=== PATIENT | female | born 1990 | race Caucasian/White ===

== ENCOUNTER → 2020-05-30 01:34 | Outpatient (CLI) | payer BC, SELFPAY ==
[2020-05-30 17:42] LABS: SARS-CoV-2 RNA PCR Negative
== END ==
PROVIDERS: PCP Internal Medicine; Visit Provider Obstetrics & Gynecology
DX: Z01.812 Encounter for preprocedural laboratory examination (principal); Z20.822 Contact with and (suspected) exposure to COVID-19
CPT/HCPCS: C9803; U0003; U0005

== ENCOUNTER 2020-05-31 00:47 | Day surgery (SDC) | payer BC, SELFPAY ==
[2020-05-29 16:02] VITALS: BMI 31.8
--- NOTE | 2020-05-30 12:33 | WPDANESEPP ---
Anes - Eval Pre Procedure Procedure: Operation Date: 05/31/20 07:30 Proposed Procedures p Suction Dilatation and Curettage - Onel Allan MD Date/Time: 05/30/20 12:33 Pre Op Diagnosis: missed AB Patient Data Age: 30 Gender: F Height: 1.6 m Weight: 81.6 kg Allergies Allergy/AdvReac Type Severity Reaction Status Date / Time acetaminophen AdvReac Mild Nausea Verified 05/29/20 16:01 hydrocodone AdvReac Mild Nausea Verified 05/29/20 16:01 Wasp Allergy Unknown Swelling Uncoded 05/29/20 16:01 SEVERE Home Medications Medication Instructions Recorded Confirmed Type lbmjtufh-qtu-Xx-FA 1 tablet PO DAILY 05/29/20 05/29/20 History [] Patient hx anesthesia problems: none Family hx anesthesia problems: none PMFSH Surgical History Surgical History H/O dilation and curettage S/P ACL repair S/P Social History Social History Smoking status: Never smoker Alcohol intake: current Substance use: never Substance use type: does not use Spiritual care concerns: No Exam Day of Procedure 05/30/20 12:33
--- NOTE | 2020-05-30 23:59 | PM.IMHP ---
H&P: HPI History of Present Illness Date/Time: 05/30/20 23:59 30 y/o with LMP 03/09/20. She has had inadequately rising hcg levels. Ultrasound exam on 05/28/20 showed IUP with embryo measuring 4.4mm, a decrease in size from 4.6mm on 05/21/20. She has had no bleeding. Blood type Bpos. History significant for DVT following knee surgery in the past. Chief Complaint: Miscarriage Review of Systems Review of Systems: All systems reviewed & are unremarkable except as noted in HPI and below PMFSH Past Medical History Medical History DVT (deep venous thrombosis) Surgical History Surgical History H/O dilation and curettage S/P ACL repair S/P Social History Social History Smoking status: Never smoker Alcohol intake: current Substance use: never Substance use type: does not use Spiritual care concerns: No Meds Home Medications and Allergies Home Medications Medication Instructions Recorded Confirmed Type oevptulx-tju-Va-FA 1 tablet PO DAILY 05/29/20 05/29/20 History [] Allergies Allergy/AdvReac Type Severity Reaction Status Date / Time acetaminophen AdvReac Mild Nausea Verified 05/29/20 16:01 hydrocodone AdvReac Mild Nausea Verified 05/29/20 16:01 Wasp Allergy Unknown Swelling Uncoded 05/29/20 16:01 SEVERE Exam Const: Orientation/consciousness: patient oriented x3 Other: Well-developed, well-nourished female in no acute distress. Neck: Thyroid: thyroid normal Lymphatic: no lymphadenopathy noted (in neck, axilla or inguinal nodes) Resp: Effort & Inspection: normal respiratory effort Auscultation: clear to auscultation bilaterally Cardio: Rate: regular rate Rhythm: regular rhythm Heart sounds: S1 normal heart sound present and S2 normal heart sound present GI: Other: ABD: Soft, nontender, nondistended. No guarding or rebound tenderness. No hepatosplenomegaly. : General: Yes no CVA tenderness Other: External genitalia: normal female hair distribution, without lesion. Urethral meatus: no lesion, non prolapsed. Bladder: no mass, nontender Vagina: well-estrogenized, without lesion or discharge. No cystocele or rectocele. Cervix: no lesion or discharge. Uterus: small, anteverted, freely mobile, nontender Adnexa: no mass or tenderness. Anus/perineum: no lesions, nontender Back/Spine/Pelvis: Back: no CVA tenderness Skin: General skin exam: normal color and no rashes or lesions noted Neuro: General: patient oriented x3 Extrem: Other: Extremities: nontender with no edema Psych: Mental Status: mental status grossly normal Affect: normal affect Assessment and Plan Assessment and plan (1) Missed : Code(s): O02.1 - Missed Status: Acute Assessment and Plan: A: Missed SAB. P: Offered expectant management vs surgical management. She prefers the latter. Specifically, I have offered a dilation with suction curettage. She understands risks of surgery to include risks of anesthesia, risks of pain, infection, bleeding, blood products, thromboembolic phenomena and damage to adjacent structures such as bowel, bladder, ureters, blood vessels and nerves. She understands all these risks and elects to proceed with surgery.
--- NOTE | 2020-05-31 06:51 | P.PNAN_ITS ---
Anes - Initial Pre Proc Eval Procedure: Operation Date: 05/31/20 07:30 Proposed Procedures p Suction Dilatation and Curettage - Onel Allan MD Date/Time: 05/31/20 06:51 Surgeon: Onel Allan MD Pre Op Diagnosis: missed AB Patient Data Age: 30 Gender: F Height: 5 ft 3 in Weight: 81.6 kg Allergies Allergy/AdvReac Type Severity Reaction Status Date / Time hydrocodone AdvReac Mild Nausea Verified 05/31/20 06:38 Wasp Allergy Unknown Swelling Uncoded 05/31/20 06:38 SEVERE Home Medications Medication Instructions Recorded Confirmed Type sgkezttw-imf-Bd-FA 1 tablet PO DAILY 05/29/20 05/31/20 History [] Patient hx anesthesia problems: none Family hx anesthesia problems: none [facility] Past Medical History Medical History (Updated 05/31/20 @ 06:51 by David Camacho MD) DVT (deep venous thrombosis) Overweight Surgical History Surgical History H/O dilation and curettage S/P ACL repair S/P Social History Social History Smoking status: Never smoker Alcohol intake: current Alcohol use details: 2/MONTH Substance use: never Substance use type: does not use Living arrangements: with family Spiritual care concerns: No Anes - Eval Final PreProcedure Day of Procedure 05/31/20 06:51 Patient weight: overweight Heart: regular rate and rhythm Lungs: clear to auscultation Airway: Mallampati scale class 1 Neurological: alert and oriented Last oral intake: >/= 8 hours ASA classification: II Emergent: no Anesthetic plan: proceed Anesthesia type and monitoring: general GIVS and standard monitoring Informed Consent: The patient's anesthetic plan and its attendant risks and benefits were discussed with the patient/family/POA. Questions were solicited and answers provided to the satisfaction of the patient/family/POA.
[2020-05-31] MEDS: ACETAMINOPHEN 500 MG TABLET 1000 MG PO (07:11)
--- NOTE | 2020-05-31 07:34 | WPDHPUPDATE1 ---
History and Physical Update Update Date/Time: 05/31/20 07:34 History and Physical has been reviewed, including an updated exam of the patient. There are NO changes in the patient's condition. Risks, benefits, and alternatives have been discussed and questions answered. Patient agrees to proceed with procedure.
[2020-05-31] MEDS: LACTATED RINGERS 1,000 ML 30 ML IV CONT (07:36)
[2020-05-31 07:37] VITALS: BP 115/75; PULSE 76; RESP 16; TEMP 36.4; O2SAT 100; BMI 32.8
--- NOTE | 2020-05-31 07:59 | PM.PROC ---
Procedure Note - Detailed Date of procedure: 05/31/20 Pre-op diagnosis: missed AB Post-op diagnosis: same Procedure performed: Dilation and suction curettage Description of procedure: The patient was taken to the operating room where she was prepared and draped in the usual sterile fashion in the dorsal lithotomy position. The bladder was drained with a red rubber catheter. A sterile speculum was placed into the vagina. The anterior lip of the cervix was grasped with a single-tooth tenaculum. Ten mL of 1% lidocaine was administered in a paracervical block. The cervix was gently dilated using Hegar dilators until an 8mm dilator could be passed. The 8mm curved tip suction curette was advanced. Suction curettage was performed and products of conception were aspirated. Sharp curettage was then performed until a good uterine cry was noted. A final pass with the suction curette was made. The tenaculum was removed. Hemostasis was excellent. Sponge, lap, needle and instrument counts were correct. The patient was taken to the recovery room in stable condition. I was present and scrubbed for the entire procedure. Surgeon: Onel Allan MD Estimated blood loss (mL): 50 Drains: No Packing: No Pathology: yes (Endometrial curettings) Complications: None Condition: stable Disposition: PACU Findings: Products of conception aspirated
[2020-05-31 08:01] VITALS: BP 112/67; PULSE 74; RESP 16; O2SAT 91
[2020-05-31 08:30] VITALS: BP 110/67; PULSE 61; RESP 20
--- NOTE | 2020-05-31 08:38 | SUR.PHASEII ---
0838 - blood type noted B positive
[2020-05-31 09:00] VITALS: BP 101/65; PULSE 59; RESP 20
[2020-05-31 09:20] VITALS: BP 108/65; PULSE 67; RESP 20
== END 2020-05-31 09:26 | disposition home or self-care (01) ==
PROVIDERS: PCP Internal Medicine; Visit Provider Obstetrics & Gynecology
PROC: (CPT 59820; principal; 2020-05-31 07:30)
DX: O02.1 Missed abortion (principal); Z86.718 Personal history of other venous thrombosis and embolism
CPT/HCPCS: 59820; 36415; 85461; 88305; A9270; J1100; J1885; J2250; J2405; J2590; J2704; J3010; J7120

== ENCOUNTER 2021-07-19 23:33 | Emergency (ER) | payer BC, SELFPAY ==
[2021-07-19 23:38] VITALS: BP 118/75; PULSE 73; RESP 18; TEMP 36.6; O2SAT 99
--- NOTE | 2021-07-20 00:38 | ED.LOWEXIN ---
HPI - Extremity Injury (Lower) General Chief Complaint: Extremity Injury, Lower Stated Complaint: possible blood clot Time Seen by Provider: 07/20/21 00:31 Source: patient Mode of arrival: ambulatory Limitations: no limitations History of Present Illness HPI Narrative: This is a 31-year-old female that presents to the emergency department for right calf pain noted since yesterday. Associated with some swelling of the leg. Reports history of DVT in this leg and that the pain felt similar which prompted her to be seen. She has been undergoing IVF, although she is not currently . Denies fever or erythema. Related Data Home Medications Medication Instructions Recorded Confirmed swdqqxjf-bvw-Eg-FA 1 mg 1 tablet PO DAILY 05/29/20 05/31/20 tablet Allergies Allergy/AdvReac Type Severity Reaction Status Date / Time hydrocodone AdvReac Mild Nausea Verified 07/19/21 23:38 Wasp Allergy Unknown Swelling Uncoded 07/19/21 23:38 SEVERE Review of Systems Review of Systems: CONSTITUTIONAL: Denies fever SKIN: Denies rash MUSCULOSKELETAL: Reports myalgia. All systems reviewed & are unremarkable except as noted in HPI and below PMFSH Past Medical History Medical History (Updated 07/20/21 @ 01:19 by Natali Broderick PA-C) DVT (deep venous thrombosis) Overweight Surgical History Surgical History H/O dilation and curettage S/P ACL repair S/P Social History Social History (Updated 07/20/21 @ 00:39 by Natali Broderick PA-C) Smoking status: Never smoker Substance use: never Substance use type: does not use Spiritual care concerns: No Exam Narrative: GENERAL: Well-appearing, well-nourished, and in no acute distress. HEAD: Normocephalic, atraumatic. EYES: EOMI. CHEST: No respiratory distress. HEART: Regular rate EXTREMITIES: Normal range of motion. No edema or erythema Normal DP pulses. Normal sensation SKIN: Warm, dry, no rash. NEURO: No focal deficits. Alert and oriented x3. PSYCH: Normal mood and affect Course Vital Signs Vital signs: Vital Signs Temperature 98 F 07/19/21 23:38 Pulse Rate 73 07/19/21 23:38 Respiratory Rate 18 07/19/21 23:38 Blood Pressure 118/75 07/19/21 23:38 Pulse Oximetry 99 07/19/21 23:38 Oxygen Delivery Room Air 07/19/21 23:38 Temperature 98 F 07/19/21 23:38 Pulse Rate 62 07/20/21 01:37 Respiratory Rate 16 07/20/21 01:37 Blood Pressure 123/73 07/20/21 01:37 Pulse Oximetry 99 07/20/21 01:37 Oxygen Delivery Room Air 07/20/21 01:37 MDM - Extremity Injury (Lower) MDM Narrative Medical decision making narrative: Patient presents to the emergency department for right calf pain noted since yesterday. She is afebrile and nontoxic-appearing. No erythema or warmth of the leg. Patient has history of DVT and reports her pain feels similar to her previous 1. Patient given a dose of Lovenox in the ED and is set up for an ultrasound of her leg in the morning. Instructed to have follow-up with her primary doctor. She was given warnings to return to the ER Lab Data Attestation: I reviewed the patient's lab results. Result diagrams: 07/20/21 00:48 07/20/21 00:48 Labs: Lab Results 07/20/21 07/20/21 07/20/21 Range/Units 00:48 00:48 00:48 WBC 6.3 (4.5-10.0) K/mm3 RBC 4.29 (4.2-5.4) M/mm3 Hgb 12.6 (12.0-15.0) g/dL Hct 38.2 (37.0-47.0) % MCV 89.0 (80-100) fl MCH 29.4 (26-34) pg MCHC 33.0 (32-36) g/dl RDW 12.5 (11.5-14.5) % Plt Count 383 H (150-375) k/mm3 MPV 9.7 (7.4-10.4) fl Immature Gran % (Auto) 0.3 (0-0.5) % Neut % (Auto) 56.0 (45.5-73.1) % Lymph % (Auto) 32.9 (18.3-44.2) % Emmet % (Auto) 8.6 H (2.6-8.5) % Eos % (Auto) 1.7 (0-4.4) % Baso % (Auto) 0.5 (0.2-1.2) % Lymph # (Auto) 2.07 (0.9-3.2) K/mm3 Emmet # (Auto) 0.5 (0.
[2021-07-20 00:53] LABS: Basophils Percent Auto 0.5 % (0.2-1.2); Eosinophils Absolute Auto 0.1 K/mm3 (0-0.3); Eosinophils Percent Auto 1.7 % (0-4.4); Hematocrit 38.2 % (37.0-47.0); Hemoglobin 12.6 g/dL (12.0-15.0); Immature Granulocyte Absolute 0.02 K/mm3 (0.00-0.031); Immature Granulocyte Percent A 0.3 % (0-0.5); Lymphocytes Absolute Auto 2.07 K/mm3 (0.9-3.2); Lymphocytes Percent Auto 32.9 % (18.3-44.2); Mean Corpuscular Hemoglobin 29.4 pg (26-34); Mean Platelet Volume 9.7 fl (7.4-10.4); Monocytes Absolute Auto 0.5 K/mm3 (0.1-0.6); Monocytes Percent Auto 8.6 % (2.6-8.5); Neutrophils Absolute Auto 3.5 K/mm3 (1.3-6.7); Platelet Count Result 383 k/mm3 (150-375); Red Blood Count 4.29 M/mm3 (4.2-5.4); Red Cell Distribution Width 12.5 % (11.5-14.5); White Blood Count 6.3 K/mm3 (4.5-10.0)
[2021-07-20 01:03] LABS: Anion Gap 5 mmol/L (8-16); Blood Urea Nitrogen 9 mg/dL (7-17); Calcium 8.9 mg/dL (8.4-10.2); Carbon Dioxide 27 mmol/L (22-30); Chloride 106 mmol/L (98-107); Estimated CRCL calculation 84 ml/min; Estimated Glomerular Filt Rate > 60; Glucose 96 mg/dL (65-110); INR 0.9; Prothrombin Time 12.2 Seconds (11.1-14.7); Sodium 138 mmol/L (137-145)
[2021-07-20 01:04] LABS: Partial Thromboplastin Time 28.3 SECONDS (22.3-36.8)
[2021-07-20 01:06] LABS: D Dimer 0.33 ug/mL (<0.48)
[2021-07-20] MEDS: ENOXAPARIN 100 MG/ML SYRINGE 85 MG SUB-Q (01:33)
[2021-07-20 01:37] VITALS: BP 123/73; PULSE 62; RESP 16; O2SAT 99
== END 2021-07-20 01:44 | disposition home or self-care (01) ==
PROVIDERS: Physician Assistant; Emergency Provider General Practice; PCP Internal Medicine
DX: M79.661 Pain in right lower leg (principal); Z86.718 Personal history of other venous thrombosis and embolism; E66.3 Overweight; Z68.30 Body mass index [BMI] 30.0-30.9, adult
CPT/HCPCS: 36415; 80048; 85025; 85380; 85610; 85730; 96372; 99283; J1650

== ENCOUNTER 2021-07-20 07:31 | Outpatient (CLI) | payer BC, SELFPAY ==
--- NOTE | ~2021-07-20 | US_ITS ---
EXAMINATION: US venous doppler LE RT DATE: 07/20/2021 07:58 INDICATION: Right lower limb swelling TECHNIQUE: Medrano scale images without and with compression and Doppler images of the right lower extre mity veins were obtained. COMPARISON: None FINDINGS: The right common femoral vein, profunda femoral vein, femoral vein, popliteal vein, peronea l trunk, posterior tibial veins, and greater saphenous vein are patent. IMPRESSION: 1. Patent right lower extremity veins. No evidence of deep venous thrombosis. Reviewed, dictated and finalized at location A.
== END 2021-07-20 07:32 | disposition home or self-care (01) ==
LOC: ANHIMG 07:35
PROVIDERS: PCP Internal Medicine; Visit Provider Internal Medicine
DX: M79.89 Other specified soft tissue disorders (principal)
CPT/HCPCS: 93971

== ENCOUNTER 2021-08-25 15:27 | Emergency (ER) | payer BC, SELFPAY ==
[2021-08-25 15:30] VITALS: BP 131/81; PULSE 93; RESP 20; TEMP 37.2; O2SAT 100
--- NOTE | 2021-08-25 15:32 | ED.FEMALEGU ---
HPI - Female Genitourinary General Chief complaint: Urogenital-Female Stated complaint: Poss Uti and ear plugged Time Seen by Provider: 08/25/21 15:32 Source: patient and RN notes reviewed History of Present Illness HPI Narrative: Patient is a 31-year-old female presents the urgent care with complaints of a possible UTI. Patient states that for the last 2 days she has had burning, frequency and a lot of low back pain last night. Patient states that she was going through her IBS treatments and stopped approximately 2 weeks ago. Patient states she did have 1 healthy and a few miscarriages. Patient also reports of feeling like her ears are clogged and some slight dizziness. Patient states she had a left ear infection a couple weeks ago and wants to make sure it is cleared up . Denies of any upper respiratory complaints, fever, nausea or vomiting. Denies of abdominal pain. No other acute complaints. No acute distress noted. Patient aware of the plan of care. Some parts of this dictation were generated by voice recognition software and may contain typographical and/or grammatical inaccuracies. Related Data Home Medications Medication Instructions Recorded Confirmed evpzbnqg-xhw-Wz-FA 1 mg 1 tablet PO DAILY 05/29/20 08/25/21 tablet Allergies Allergy/AdvReac Type Severity Reaction Status Date / Time hydrocodone AdvReac Mild Nausea Verified 08/25/21 15:45 Wasp Allergy Unknown Swelling Uncoded 08/25/21 15:45 SEVERE Review of Systems Review of Systems: CONSTITUTIONAL: Denies fever, chills, or sweats. EYES: Denies visual changes, redness, or discharge. ENT: Denies rhinorrhea, congestion, sore throat. Reports of bilateral ears clogged CARDIOVASCULAR: Denies chest pain, palpitations, or edema. RESPIRATORY: Denies cough or dyspnea. GASTROINTESTINAL: Denies abdominal pain, nausea, vomiting, or diarrhea. GENITOURINARY: Reports of dysuria, urinary frequency and urgency SKIN: Denies rash or itching. MUSCULOSKELETAL: Reports of intermittent low back pain NEUROLOGIC: Denies headache, numbness, or weakness. All other systems reviewed are negative, except as documented in HPI. [facility] Past Medical History Medical History (Updated 08/25/21 @ 16:06 by LINH Roberts) DVT (deep venous thrombosis) Overweight Surgical History Surgical History H/O dilation and curettage S/P ACL repair S/P Social History Social History (Updated 07/20/21 @ 00:39 by Natali Broderick PA-C) Smoking status: Never smoker Substance use: never Substance use type: does not use Spiritual care concerns: No Comments At the time of my signature, I reviewed and agree with the nursing past medical, surgical, social, and family history. There is no relevant family history pertinent to the patient complaint. Exam Narrative: GENERAL: This is a well-nourished, well-developed patient, in no apparent distress. HEAD: normocephalic, atraumatic. EYES: PERRL. Sclera clear/white. Vision is grossly intact. EARS: External ears normal, auditory canals clear and without drainage, TMs normal without perforation. Hearing grossly intact. NOSE: External nose normal with no obvious nasal discharge, nares without redness, no rhinorrhea. THROAT: Mucous membranes moist NECK: Neck supple CARDIOVASCULAR: Regular rate and rhythm without murmurs, gallops, or rubs. RESPIRATORY: Clear to auscultation. Breath sounds equal bilaterally. No wheezes, rales, or rhonchi. GASTROINTESTINAL: Abdomen soft, reports of suprapubic tenderness, nondistended. Bowel sounds are active. SKIN: warm, intact with no suspicious lesions or rash, good texture and turgor. NEURO: awake, alert, and oriented to person, place and time. There were no obvious focal neurologic abnormalities. EXTREMITIES: No clubbing, cyanosis, or edema. BACK: Mild right-sided flank tenderness Course Course Level of Ca
== END 2021-08-25 16:10 | disposition home or self-care (01) ==
PROVIDERS: Emergency Provider Nurse Practitioner Family; PCP Internal Medicine
DX: N39.0 Urinary tract infection, site not specified (principal); Z86.718 Personal history of other venous thrombosis and embolism
CPT/HCPCS: 81003; 81025; 87077; 87086; 87088; 87186; 99213; G0463

== ENCOUNTER 2022-01-15 11:51 | Outpatient (CLI) | payer BC, SELFPAY ==
[2022-01-15 12:49] LABS: Influenza A QL RT-PCR Negative (Negative); Influenza B QL RT-PCR Negative (Negative)
== END 2022-01-15 11:52 | disposition home or self-care (01) ==
LOC: CHSLAB 11:53
PROVIDERS: PCP Family Medicine; Visit Provider Physician Assistant Medical
DX: Z20.828 Contact with and (suspected) exposure to other viral communicable diseases (principal)
CPT/HCPCS: 87502

== ENCOUNTER 2022-02-11 18:39 | Emergency (ER) | payer BC, SELFPAY ==
--- NOTE | 2022-02-11 18:43 | ED.NAVMDI ---
HPI - Nausea/Vomiting/Diarrhea General Chief complaint: Nausea/Vomiting/Diarrhea Stated complaint: Nausea Time Seen by Provider: 02/11/22 18:44 Source: patient and RN notes reviewed History of Present Illness HPI Narrative: Patient is a 31-year-old female who presents to the Urgent Care with complaints of of persistent nausea for approximately 3 days. Patient states that started Barbara morning with diarrhea. Denies any fevers or abdominal pain. Denies any urinary symptoms. Patient states that she has been doing IVF and recently stopped the medication due to symptoms. patient states that she had a blood test drawn on Wednesday which was negative. patient has not taken anything [id number] for her symptoms. No other acute complaints. No acute distress noted. Patient aware of the plan of care. Some parts of this dictation were generated by voice recognition software and may contain typographical and/or grammatical inaccuracies. Related Data Allergies Allergy/AdvReac Type Severity Reaction Status Date / Time venom-wasp Allergy Severe Swelling Verified 02/11/22 18:55 hydrocodone AdvReac Mild Nausea Verified 02/11/22 18:55 Review of Systems Review of Systems: CONSTITUTIONAL: Denies fever, chills, or sweats. EYES: Denies visual changes, redness, or discharge. ENT: Denies rhinorrhea, congestion, sore throat, or otalgia. CARDIOVASCULAR: Denies chest pain, palpitations, or edema. RESPIRATORY: Denies cough or dyspnea. GASTROINTESTINAL: Reports persistent nausea without vomiting or abdominal pain GENITOURINARY: Denies dysuria or hematuria. SKIN: Denies rash or itching. MUSCULOSKELETAL: Denies back pain, joint pain, or myalgia. NEUROLOGIC: Denies headache, numbness, or weakness. All other systems reviewed are negative, except as documented in HPI. [facility] Past Medical History Medical History DVT (deep venous thrombosis) Overweight Surgical History Surgical History H/O dilation and curettage S/P ACL repair S/P Social History Social History Smoking status: Never smoker Substance use: never Substance use type: does not use Spiritual care concerns: No Comments At the time of my signature, I reviewed and agree with the nursing past medical, surgical, social, and family history. There is no relevant family history pertinent to the patient complaint. Exam Narrative: GENERAL: This is a well-nourished, well-developed patient, in no apparent distress. HEAD: normocephalic, atraumatic. EYES: PERRL. Sclera clear/white. Vision is grossly intact. EARS: External ears normal NOSE: External nose normal with no obvious nasal discharge, nares without redness, no rhinorrhea. THROAT: Mucous membranes moist NECK: Neck supple CARDIOVASCULAR: Regular rate and rhythm without murmurs, gallops, or rubs. RESPIRATORY: Clear to auscultation. Breath sounds equal bilaterally. No wheezes, rales, or rhonchi. GASTROINTESTINAL: Abdomen soft, mild suprapubic tenderness, nondistended. Bowel sounds are active. SKIN: warm, intact with no suspicious lesions or rash, good texture and turgor. NEURO: awake, alert, and oriented to person, place and time. There were no obvious focal neurologic abnormalities. EXTREMITIES: No clubbing, cyanosis, or edema. BACK: negative CVA tenderness Course Course Level of Care: Express Care Visit Vital Signs Vital signs: Vital Signs Temperature 98.2 F 02/11/22 18:45 Pulse Rate 84 02/11/22 18:45 Respiratory Rate 20 02/11/22 18:45 Blood Pressure 128/86 02/11/22 18:45 Pulse Oximetry 100 02/11/22 18:45 Oxygen Delivery Room Air 02/11/22 18:45 Temperature 98.2 F 02/11/22 18:45 Pulse Rate 84 02/11/22 18:45 Respiratory Rate 20 02/11/22 18:45 Blood Pressure 128/86 02/11/22 18:45 Pulse Oximetry
[2022-02-11 18:45] VITALS: BP 128/86; PULSE 84; RESP 20; TEMP 36.8; O2SAT 100
== END 2022-02-11 19:27 | disposition home or self-care (01) ==
PROVIDERS: Emergency Provider Nurse Practitioner Family; PCP Family Medicine
DX: N39.0 Urinary tract infection, site not specified (principal)
CPT/HCPCS: 81003; 87086; 99213; G0463

== ENCOUNTER 2022-06-08 14:58 | Emergency (ER) | payer BC, SELFPAY ==
[2022-06-08 15:05] VITALS: BP 123/69; PULSE 78; RESP 16; TEMP 36.6; O2SAT 100
--- NOTE | 2022-06-08 15:17 | ED.GENADULT ---
HPI - General Adult General Chief complaint: Urogenital-Female Stated complaint: Urinary Problem Source: patient and RN notes reviewed History of Present Illness HPI narrative: 32-year-old male presents to urgent care with complaints of dysuria since last night. Patient states she is pretty sure she had a UTI because it whitaker with urination. Patient denies any abnormal abdominal pain, back pain, fevers, chills, or vomiting. Patient is approximately 7 weeks . 4 para 1. Related Data Home Medications Medication Instructions Recorded Confirmed norgestimate 0.25 mg-ethinyl 1 tablet PO DAILY 02/23/22 03/30/22 estradiol 35 mcg tablet (Debo) choriogonadotropin kleber,humrec 250 mcg subcut 06/08/22 mcg/0.5 mL subcutaneous syringe (Ovidrel) ganirelix 250 mcg/0.5 mL mcg subcut 06/08/22 subcutaneous syringe levothyroxine 25 mcg tablet mcg 06/08/22 progesterone 50 mg/mL mg IM 06/08/22 intramuscular oil Allergies Allergy/AdvReac Type Severity Reaction Status Date / Time venom-wasp Allergy Severe Swelling Verified 03/30/22 10:33 hydrocodone AdvReac Mild Nausea Verified 03/30/22 10:33 Review of Systems Review of Systems: Pertinent positives and pertinent negatives per HPI. [facility] Past Medical History Medical History DVT (deep venous thrombosis) Overweight Surgical History Surgical History H/O dilation and curettage S/P ACL repair S/P Social History Social History Smoking status: Never smoker Substance use: never Substance use type: does not use Living arrangements: with family Spiritual care concerns: No Comments At the time of my signature, I reviewed and agree with the nursing past medical, surgical, social, and family history. There is no relevant family history pertinent to the patient complaint. Exam Narrative: GENERAL: This is a well-nourished, well-developed patient, in no apparent distress. HEAD: normocephalic, atraumatic. EYES: Sclera clear/white. Vision is grossly intact. EARS: External ears normal, auditory canals clear and without drainage. Hearing grossly intact. NOSE: External nose normal with no obvious nasal discharge, nares without redness, no rhinorrhea. THROAT: Mucous membranes moist, posterior pharynx clear. NECK: Neck supple, non-tender without lymphadenopathy, masses or thyromegaly. CARDIOVASCULAR: Regular rate RESPIRATORY: No respiratory distress SKIN: warm, intact with no suspicious lesions or rash, good texture and turgor. NEURO: awake, alert, and oriented to person, place and time. There were no obvious focal neurologic abnormalities. Course Course Level of Care: Express Care Visit Vital Signs Vital signs: Vital Signs Temperature 98 F 06/08/22 15:05 Pulse Rate 78 06/08/22 15:05 Respiratory Rate 16 06/08/22 15:05 Blood Pressure 123/69 06/08/22 15:05 Pulse Oximetry 100 06/08/22 15:05 Oxygen Delivery Room Air 06/08/22 15:05 Temperature 98 F 06/08/22 15:05 Pulse Rate 78 06/08/22 15:05 Respiratory Rate 16 06/08/22 15:05 Blood Pressure 123/69 06/08/22 15:05 Pulse Oximetry 100 06/08/22 15:05 Oxygen Delivery Room Air 06/08/22 15:05 Reviewed Medical Decision Making Vital Signs Vital Signs: Vital Signs Temperature 98 F 06/08/22 15:05 Pulse Rate 78 06/08/22 15:05 Respiratory Rate 16 06/08/22 15:05 Blood Pressure 123/69 06/08/22 15:05 Pulse Oximetry 100 06/08/22 15:05 Oxygen Delivery Room Air 06/08/22 15:05 Temperature 98 F 06/08/22 15:05 Pulse Rate 78 06/08/22 15:05 Respiratory Rate 16 06/08/22 15:05 Blood Pressure 123/69 06/08/22 15:05 Pulse Oximetry 100 06/08/22 15:05 Oxygen Delivery Room Air 06/08/22 15:05 Lab Data Labs: Urine Glucose Negative
== END 2022-06-08 15:35 | disposition home or self-care (01) ==
PROVIDERS: Emergency Provider Nurse Practitioner Family; PCP Nurse Practitioner Family
DX: N39.0 Urinary tract infection, site not specified (principal); Z86.718 Personal history of other venous thrombosis and embolism
CPT/HCPCS: 81003; 87077; 87086; 87186; 99213; G0463

== ENCOUNTER 2023-09-07 08:40 | Outpatient (CLI) | payer BC, SELFPAY ==
--- NOTE | ~2023-09-07 | US_ITS ---
BILATERAL LOWER EXTREMITY VENOUS ULTRASOUND Ordering provider: Onel Allan MD History: . LEG PAIN . Comparison: None. FINDINGS: RIGHT LOWER EXTREMITY VEINS: --COMMON FEMORAL: Patent and free of thrombus. Normal compressibility, phasic flow and augmentation. --PROXIMAL SUPERFICIAL FEMORAL: Patent and free of thrombus. Normal compressibility, phasic flow and augmentation. --DISTAL SUPERFICIAL FEMORAL: Patent and free of thrombus. Normal compressibility, phasic flow and au gmentation. --POPLITEAL: Patent and free of thrombus. Normal compressibility, phasic flow and augmentation. --POSTERIOR TIBIAL: Patent and free of thrombus. Normal compressibility, phasic flow and augmentation . LEFT LOWER EXTREMITY VEINS: --COMMON FEMORAL: Patent and free of thrombus. Normal compressibility, phasic flow and augmentation. --PROXIMAL SUPERFICIAL FEMORAL: Patent and free of thrombus. Normal compressibility, phasic flow and augmentation. --DISTAL SUPERFICIAL FEMORAL: Patent and free of thrombus. Normal compressibility, phasic flow and au gmentation. --POPLITEAL: Patent and free of thrombus. Normal compressibility, phasic flow and augmentation. --POSTERIOR TIBIAL: Patent and free of thrombus. Normal compressibility, phasic flow and augmentation . IMPRESSION: Negative bilateral lower extremity venous US. No deep vein thrombosis. Reviewed, dictated and finalized at location A.
== END 2023-09-07 08:41 | disposition home or self-care (01) ==
LOC: ANHIMG 08:48
PROVIDERS: PCP Nurse Practitioner Family; Visit Provider Obstetrics & Gynecology
DX: M79.661 Pain in right lower leg (principal); M79.662 Pain in left lower leg
CPT/HCPCS: 93970

== ENCOUNTER 2023-11-02 10:16 | Emergency (ER) | payer BC, SELFPAY ==
[2023-11-02 10:24] VITALS: BP 119/54; PULSE 82; RESP 20; TEMP 36.7; O2SAT 100
--- NOTE | 2023-11-02 10:46 | ED.URI ---
HPI - URI/Sore Throat General Chief Complaint: Upper Respiratory Infection Stated Complaint: Sinus infection Time Seen by Provider: 11/02/23 10:47 Source: patient, RN notes reviewed and old records reviewed Mode of arrival: ambulatory Limitations: no limitations History of Present Illness HPI Narrative: 33 year old female who is 21 weeks presents to express care with complaints of sinus pressure between her eyes and headache since Mid September. 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 Patient reports that yesterday she had fever up to 99.5F and had some chills. MD elicited complaint: fever, rhinorrhea, sinus pain and other Onset (ago): month(s) (1) Pain scale (0-10): 2 Description of mucous: clear Able to tolerate fluids by mouth: Yes Treatments prior to arrival: acetaminophen and other (flonase) Related Data Allergies Allergy/AdvReac Type Severity Reaction Status Date / Time venom-wasp Allergy Severe Swelling Verified 11/02/23 10:36 hydrocodone AdvReac Mild Nausea Verified 11/02/23 10:36 Review of Systems Review of Systems: CONSTITUTIONAL: Denies malaise, chills, sweats, states yesterday low grade fever 99.5F EYES: Denies visual changes, redness, or discharge. ENT: Reports rhinorrhea, congestion, sinus pain between eyes, no otalgia and no sore throat. CARDIOVASCULAR: Denies chest pain, palpitations, or edema. RESPIRATORY: Reports no cough.? Denies dyspnea. GASTROINTESTINAL: Denies abdominal pain, nausea, vomiting, diarrhea SKIN: Denies rash or itching. MUSCULOSKELETAL: Denies myalgia. NEUROLOGIC: Reports headache. All systems reviewed & are unremarkable except as noted in HPI and below PMFSH Past Medical History Medical History DVT (deep venous thrombosis) Overweight Surgical History Surgical History H/O dilation and curettage S/P ACL repair S/P Social History Social History Smoking status: Never smoker Substance use: never Substance use type: does not use Living arrangements: with family Spiritual care concerns: No Comments At time of signature, agree with nursing past medical, surgical, social and family history. There is no relevant family history pertinent to the presenting complaint Exam Narrative: GENERAL: Well-appearing, well-nourished, and in no acute distress. HEAD: Normocephalic EYES: PERRLA, conjunctivae clear ENT: Nares clear, turbinates edematous and erythematous, clear discharge. Mucous membranes moist. TM pearly pandya with dull light reflex bilaterally; no tragal tenderness. Oropharynx erythematous without lesions. Tonsils not enlarged and without exudate, no drooling, no hoarseness, no trismus, uvula midline. NECK: Supple. No lymphadenopathy CHEST: Clear to auscultation, breath sounds equal. No wheezing, rhonchi, rales, or stridor. No respiratory distress, speaks in full sentences.SAO2 100% on room air. HEART: Regular rate and rhythm. No murmur heard. SKIN: Warm, dry, no rash. NEURO: Alert and oriented x3. PSYCH: Normal mood and affect Course Course Emergency Course: Patient is aware of diagnosis, understands and agrees to treatment plan.? Anticipatory guidance given.? Patient agrees to follow-up as directed and is aware of reasons to seek care at the emergency department. Portions of this record may have been created with voice recognition software Level of Care: Express Care Visit Vital Signs Vital signs: Vital Signs Temperature 36.7 C 11/02/23 10:24 Pulse Rate 82 11/02/23 10:24 Respiratory Rate 20 11/02/23 10:24 Blood Pressure 119/54 L 11/02/23 10:24 Pulse Oximetry 100 11/02/23 10:24 Oxygen Delivery Room Air 11/02/23 10:24 Temperature 36.7 C 0
== END 2023-11-02 11:15 | disposition home or self-care (01) ==
PROVIDERS: Emergency Provider Registered Nurse
DX: J01.40 Acute pansinusitis, unspecified (principal); Z86.718 Personal history of other venous thrombosis and embolism
CPT/HCPCS: 99213; G0463

== ENCOUNTER 2024-01-20 07:02 | Observation (INO) | payer BC, SELFPAY ==
[2024-01-20] VITALS (7 sets, daily range): BP systolic 112–137; BP diastolic 57–72; PULSE 70–88; RESP 20; TEMP 36.6; BMI 39.1
--- NOTE | 2024-01-20 08:02 | OBADM ---
This patient, Linda Ferguson, admitted to OB room 115 for observation. Patient/family oriented to hospital policies and general routines including ID bracelet, bed and alarms, visiting hours, pain management, procedures, bathroom and other care routines, personal items, smoking policy, room service/diet, and visiting hours. Patient/Family are encouraged to report perceived risks to care and to ask questions if they do not understand what they are told or what they should do.
[2024-01-20 08:11] LABS: Add Urine Microscopic? YES; Appearance Urine Cloudy (Clear); Bacteria Urine 4+ /hpf; Bilirubin Urine Negative (Negative); Blood Urine Negative (Negative); Color Urine Dark Yellow (Yellow); Glucose Urine UA Negative (Negative); Ketones Urine 3+ mg/dL (Negative); Leukocyte Esterase Ur 1+ LEU/UL (Negative); Need Manual Microscopic Reviewed; Nitrate Urine Negative (Negative); Non Pathogenic Casts 0-2; Protein Urine 1+ mg/dL (Negative); Specific Grav Ur 1.028 (1.001-1.035); Squamous Epithelial Cell Urine Moderate /hpf (Few); WBC Urine 21-50 /hpf (0-3); pH Urine 7.5 (5.0-9.0)
[2024-01-20] MEDS: DEXTROSE 5%/0.45% SOD CHL 1,000 ML 999 ML IV CONT (09:28)
[2024-01-20] MEDS: fentaNYL CITRATE INJ (*CRX) 100 MCG/2 ML VIAL 50 MCG IV PUSH (09:29)
[2024-01-20 09:46] LABS: Basophils Percent Auto 0.2 % (0.2-1.2); Eosinophils Percent Auto 0.3 % (0-4.4); Hematocrit 34.3 % (37.0-47.0); Hemoglobin 11.3 g/dL (12.0-15.0); Immature Granulocyte Absolute 0.03 K/mm3 (0.00-0.031); Immature Granulocyte Percent A 0.3 % (0-0.5); Lymphocytes Percent Auto 9.9 % (18.3-44.2); Mean Corpuscular HGB Conc 32.9 g/dl (32-36); Mean Corpuscular Volume 88.2 fl (80-100); Mean Platelet Volume 9.7 fl (7.4-10.4); Monocytes Absolute Auto 0.4 K/mm3 (0.1-0.6); Monocytes Percent Auto 3.8 % (2.6-8.5); Neutrophils Absolute Auto 7.8 K/mm3 (1.3-6.7); Neutrophils Percent Auto 85.5 % (45.5-73.1); Platelet Count Result 340 k/mm3 (150-375); Red Blood Count 3.89 M/mm3 (4.2-5.4); Red Cell Distribution Width 12.9 % (11.5-14.5); White Blood Count 9.1 K/mm3 (4.5-10.0)
[2024-01-20 09:56] LABS: Alanine Aminotransferase 12 U/L (6-35); Albumin Level 3.4 g/dL (3.5-5.1); Alkaline Phosphatase 78 U/L (38-126); Anion Gap 5 mmol/L (4-12); Aspartate Amino Transferase 18 U/L (14-36); Bilirubin,Total 0.4 mg/dL (0.2-1.3); Blood Urea Nitrogen 4 mg/dL (7-17); Calcium 8.9 mg/dL (8.4-10.2); Carbon Dioxide 23 mmol/L (22-30); Chloride 106 mmol/L (98-107); Estimated CRCL calculation 127 ml/min; Estimated Glomerular Filt Rate > 60; Glucose 88 mg/dL (65-110); Potassium 4.2 mmol/L (3.4-5.0); Sodium 134 mmol/L (137-145)
--- NOTE | 2024-01-20 12:30 | PC.NURSE ---
No stone in any of the urine collected since pt admission.
--- NOTE | 2024-01-20 12:59 | PM.IMHP ---
H&P: HPI History of Present Illness Date/Time: 01/20/24 12:59 Chief Complaint: Pain Narrative: 33 y/o at 32 6/7 weeks with right flank pain of acute onset. No dysuria. No fever. Review of Systems Review of Systems: All systems reviewed & are unremarkable except as noted in HPI and below PMFSH Past Medical History Medical History DVT (deep venous thrombosis) Overweight Surgical History Surgical History H/O dilation and curettage S/P ACL repair S/P Social History Social History Smoking status: Never smoker Substance use: never Substance use type: does not use Living arrangements: with family Spiritual care concerns: No Meds Home Medications and Allergies Home Medications Medication Instructions Recorded Confirmed Type levothyroxine 25 mcg tablet 25 mcg PO DAILY #90 tabs 03/19/23 11/02/23 Rx amoxicillin 875 mg tablet 875 mg PO Q12H #20 tabs 11/02/23 Rx acetaminophen 300 mg-codeine 30 mg 1 tablet PO Q6H PRN pain #20 tabs 01/20/24 Rx tablet Allergies Allergy/AdvReac Type Severity Reaction Status Date / Time venom-wasp Allergy Severe Swelling Verified 11/02/23 10:36 hydrocodone AdvReac Mild Nausea Verified 11/02/23 10:36 Vital Signs Vital Signs - 24 hr 01/20/24 07:46 01/20/24 08:01 01/20/24 08:49 Pulse Rate 81 88 70 Blood Pressure 128/57 L 119/68 137/72 Oxygen Delivery 01/20/24 09:01 01/20/24 09:31 01/20/24 09:38 Pulse Rate 79 77 78 Blood Pressure 126/72 116/67 112/71 Oxygen Delivery 01/20/24 08:00 Pulse Rate Blood Pressure Oxygen Delivery Room Air Exam Const: Orientation/consciousness: patient oriented x3 Other: Well-developed, well-nourished female in no acute distress. Neck: Thyroid: thyroid normal Lymphatic: no lymphadenopathy noted (in neck, axilla or inguinal nodes) Resp: Effort & Inspection: normal respiratory effort Auscultation: clear to auscultation bilaterally Cardio: Rate: regular rate Rhythm: regular rhythm Heart sounds: S1 normal heart sound present and S2 normal heart sound present GI: Other: ABD: Soft, nontender, nondistended, gravid NST reactive. TOCO: rare contractions. No guarding or rebound tenderness. No hepatosplenomegaly. : General: Yes CVA tenderness on the right Skin: General skin exam: normal color and no rashes or lesions noted Neuro: General: patient oriented x3 Extrem: Other: Extremities: nontender with no edema Psych: Mental Status: mental status grossly normal Affect: normal affect H&P: Results Labs Labs: Short CBC 01/20/24 Range/Units 09:36 WBC 9.1 (4.5-10.0) K/mm3 Hgb 11.3 L (12.0-15.0) g/dL Hct 34.3 L (37.0-47.0) % Plt Count 340 (150-375) k/mm3 BMP 01/20/24 09:36 Sodium 134 L Potassium 4.2 Chloride 106 Carbon Dioxide 23 BUN 4 L D Creatinine 0.60 L Glucose 88 Calcium 8.9 Liver Function 01/20/24 Range/Units 09:36 Total Bilirubin 0.4 (0.2-1.3) mg/dL AST 18 (14-36) U/L ALT 12 (6-35) U/L Alkaline Phosphatase 78 (38-126) U/L Albumin 3.4 L (3.5-5.1) g/dL Urine 01/20/24 Range/Units 07:33 Urine Color Dark yellow (Yellow) Urine Appearance Cloudy H (Clear) Urine pH 7.5 (5.0-9.0) Ur Specific [place] 1.028 (1.001-1.035) Urine Protein 1+ H (Negative) mg/dL Urine Glucose (UA) Negative (Negative) mg/dL Assessment and Plan Assessment and plan (1) Right flank pain: Code(s): R10.9 - Unspecified abdominal pain Status: Acute Assessment and Plan: A: IUP at 32 6/7 weeks with flank pain. Clinically suspicious for urinary tract stone. Feels much better after IV hydration. Received a dose of Rocephin. Urine culture pending. P: Home to PO hydrate. Tylenol#3 1 po q 6 hours prn pain. F/u as scheduled. (2) : Code(s): Z34.90 - Encounter for supervision of normal , unspecified, unspecified trimester Status: Acute
== END 2024-01-20 13:29 | disposition home or self-care (01) ==
PROVIDERS: Admitting Provider Obstetrics & Gynecology; Visit Provider Obstetrics & Gynecology
DX: O26.893 Other specified pregnancy related conditions, third trimester (principal); R10.9 Unspecified abdominal pain; Z3A.32 32 weeks gestation of pregnancy
CPT/HCPCS: 36415; 80053; 81001; 85025; 87086; 96361; 96365; 96375; G0378; G0379; J0696; J3010

== ENCOUNTER 2024-03-06 14:04 | Outpatient (CLI) | payer BC, SELFPAY ==
[2024-03-06 14:55] LABS: Hematocrit 35.3 % (37.0-47.0); Hemoglobin 11.4 g/dL (12.0-15.0); Mean Corpuscular HGB Conc 32.3 g/dl (32-36); Mean Corpuscular Hemoglobin 28.7 pg (26-34); Mean Corpuscular Volume 88.9 fl (80-100); Mean Platelet Volume 10.1 fl (7.4-10.4); Platelet Count Result 301 k/mm3 (150-375); Red Blood Count 3.97 M/mm3 (4.2-5.4)
[2024-03-06 22:30] LABS: Rapid Plasma Reagin Non-Reactive (NonReactive)
--- OUTSIDE RECORDS SUMMARY | 2024-03-09 13:55 | XMS_ITS | Clinical Summary ---
Author Organization [facility] [address] [facility] Address [address] d[place] [facility] [place] [address] Care Team Providers Care Storekeeper Helper Name Role Phone No, Physician Primary Care Provider [phone] Allergies Active Allergy Reactions Criticality Noted Date Comments Other Hives Medium 04/03/2019 Wasp sting Medications norethindrone (MICRONOR) 0.35 mg tablet Take 1 tablet by mouth daily 02/10/2019 Active PNV 39-iron ill-amssr-sab-dh a 30 mg iron-1.2 mg-55 mg-265 mg capsule Take by mouth daily Active Active Problems Problem Noted Date Diagnosed Date HCV antibody positive 06/10/2023 Assessment & Plan (06/10/2023 1:18 PM CDT): - HCV Ab positive with negative RNA on 2+ blood draws. No risk factors for HCV. - Discussed with patient that this pattern is consistent with either a false positive HCV test or a previous HCV infection that has now cleared. Regardless, she has a negative RNA and cannot transmit infection to fetus. Will recheck HCV Ab and RNA today and if positive will consider it likely cleared infection but if negative this is likely a false positive. History of DVT (deep vein thrombosis) 04/03/2019 Overview (04/03/2019): Following knee surgery Surgical History Surgery Date Site/Laterality Comments ARTHROSCOPIC REPAIR ACL 02/15/2009 - 02/14/2010 Left ARTHROSCOPIC REPAIR ACL 02/15/2013 - 02/14/2014 Right SECTION 10/16/2018 - 11/14/2018 DILATION AND CURETTAGE OF UTERUS 09/15/2017 - 10/15/2017 Social History Tobacco Use Types Packs/Day Years Used Date Smoking Tobacco: Never Smokeless Tobacco: Never Alcohol Use Standard Drinks/Week Comments Yes 0 (1 standard drink = 0.6 oz pur e alcohol) PHQ-2 Answer Date Recorded PHQ-2 Total Score (If total score is 3 or more points, staff should administer the PHQ-9) 1 06/07/2023 Personal Safety Answer Date Recorded Getting School Help Needed Not on file 05/01 Comments No Sex and Gender Information Value Date Recorded Sex Assigned at Not on file Legal Sex Female 8:41 AM TEST DESK TROUBLE LOCATOR Gender Identity Female 06/02/2023 11:56 AM CDT Sexual Orientation Straight 06/02/2023 11 :56 AM CDT Obstetrics History Last Filed Vital Signs Vital Sign Reading Time Taken Comments Blood Pressure 120/88 06/09/2023 9:02 AM CDT Pulse 59 06/09/2023 9:02 AM CDT Temperature 36.6 ??C (97.9 ??F) 06/09/2023 9:02 AM CD T Respiratory Rate 16 04/03/2019 9:00 AM TEST DESK TROUBLE LOCATOR Oxygen Saturation 98% 06/09/2023 9:02 AM CDT Inhaled Oxygen Concentration - - Weight 93.2 kg (205 lb 8 oz) 06/09/2023 9:02 AM CDT Height 160 cm (5' 2.99 ) 06/09/2023 9:02 AM CDT Body Mass Index 36.41 06/09/2023 9:02 AM CDT Plan of Treatment Health Maintenance Due Date Last Done Comments Cervical Cancer Screening 1989 Varicella Vaccines (1 of 2 - 13+ 2-dose series) 2002 Hepatitis B Screening 2007 Regular Well Visit/Exam 18-64 2007 Influenza Vaccine (#1) 2023 10/24/2018 Depression Screening 06/08/2024 06/09/2023 DTaP/Tdap/Td Vaccine (3 - Td or Tdap) 09/08/2028 09/08/2018, 05/29/2014 Hepatitis C Screening Completed 06/09/2023 , 06/09/2023, 06/01/2023 HPV Vaccines Aged Out No longer eligi ble based on patient's age to complete this topic Pneumococcal vaccine <65 Aged Out No longer eligible based on patient's age to complete this topic Procedures Procedure Name Priority Date/Time Associated Diagnosis Comments HEPATITIS C RNA, QUANTITATIVE, PCR Routine 06/09/2023 9:20 AM CDT HCV antibody positive from Last 3 Months or Most Recently Relevant to Health Maintenance Results * Hepatitis C (HCV) RNA PCR, quantitative Blood (06/09/2023 9:20 AM CDT) [facility] HCV RNA result Not Detected [facility] Comment: The quantifiable range of this assay is 15 IU/mL to 100,000,000 IU/mL (1.18 log IU/mL to 8.00 log IU/mL). Testing was performed by the TANISHA 6800 HCV Test ([employer] Testing performed at [facility] Current Interpretive Data was last revised on 2020 Blood 06/09/2023 9:20 AM CDT 06/09/2023 1:47 PM CDT Yolie Jacobson NP LAB MICROBIOLOGY - GENERA L ORDERABLES Final Result [facility] [address] [facility] Department [place] [address] [facility] from Last 3 Months or Most Recently Relevant to Health Maintenance Insurance [employer] [place] Care Teams Storekeeper Helper Relationship Specialty Start Date End Date No, Physician PCP - General 04/03/19
--- OUTSIDE RECORDS SUMMARY | 2024-03-09 13:55 | XMS_ITS | Patient Health Summary ---
Author Organization [facility] Address [address] [place] [address] Care Team Providers Care Ops Analyst Name Role Phone Jean Ng MD Primary Care Provider [phone] Note from [facility],non-owned Affiliates and Associated Physician Practices is amultiple site organization consisting of ambulatory clinics and hospital sitesin [place], [place], [place] and [place]. This disclosure is being madepursuant to the Care Everywhere program and may not contain all information available regarding this patient. Last updated 17.[facility] Allergies No known active allergies Medications * Be aware that medications may not be up to date on this document. Alwaysverify current medications with the patient. * Nhwmvczs-Zwt-Jf-FA ( VITAMIN WITH IRON) tablet Take 1 tablet by mouth once daily Reasons: Active Problems Problem Noted Date Diagnosed Date Supervision of high-risk of quique vaughn 04/19/2018 Encounter for scre ening for malformation using ultrasound 04/19/2018 History of DVT (deep vein thrombosis) Social History Tobacco Use Types Packs/Day Years Used Date Smoking Tobacco: Never Smokeless Tobacco: Never Alcohol Use Standard Drinks/Week Comments No 0 (1 standard drink = 0.6 oz pur e alcohol) Sex and Gender Information Value Date Recorded Sex Assigned at Female 08/05/2021 11:28 AM CDT Gender Identity Female 08/05/2021 11:28 AM CDT Sexual Orientation Straight 08/05/2021 11 :28 AM CDT Last Filed Vital Signs Vital Sign Reading Time Taken Comments Blood Pressure 126/74 04/20/2018 11:09 AM CONVENTIONAL MORTGAGE UNDERWRITER Pulse 71 04/20/2018 11:09 AM CONVENTIONAL MORTGAGE UNDERWRITER Temperature - - Respiratory Rate - - Oxygen Saturation - - Inhaled Oxygen Concentration - - Weight 84.8 kg (187 lb) 04/20/2018 11:09 AM CONVENTIONAL MORTGAGE UNDERWRITER Height 160 cm (5' 3 ) 04/20/2018 11:09 AM CONVENTIONAL MORTGAGE UNDERWRITER Body Mass Index 33.13 04/20/2018 11:09 AM CONVENTIONAL MORTGAGE UNDERWRITER Procedures * SONOGRAM - COMPLETE(Performed 04/20/2018) Performed for Thrombophilia affecting , antepartum (HCC), Encounter for screening for malformation using ultrasound (HCC), Supervision of high-risk of young multigravida (HCC), History of DVT (deep vein thrombosis) Results * SONOGRAM - COMPLETE (04/20/2018 9:24 AM CONVENTIONAL MORTGAGE UNDERWRITER) Anatomical Region Laterality Modality Other 04/20/2018 9:24 AM CONVENTIONAL MORTGAGE UNDERWRITER Narrative 04/20/2018 12:41 PM CONVENTIONAL MORTGAGE UNDERWRITER ? [facility] ?PHONE: ??FAX: Pat. Name: ?DIANNA FERGUSON. No: ?[id number] Study Date: ?? 04/20/2018 ??9:24am , Age: ? 1990, 28 Pregnancies: ?? 2, Para 0 Height: ? 62 in Weight: ? 184 lb LMP: ?Unknown GA by US: ? 14w1d ?? ARMIN: 10/18/2018 GA Selected: ??14w0d (From Known E) ARMIN: ?10/19/2018 Referring MD: Onel Allan MD Night Manager: ??Ebonie Benedict RDMS CPT4: ? 48653 BMI: ?33.65 Hist/Ind: ? H/O DVT after knee surgery ?No history of Thrombophilia MEASUREMENTS & AGE ? GROWTH EVALUATION Measurement ??GA ? Range ? Srce %for GA Ratios ----- ---- ------- BPD ??2.7 cm 14w6d (96m3j-70d2u) Hadl BPD 76% FL/BPD 0.49 HC ?? 9.8 cm 14w4d (10c5p-83t9d) Hadl HC ??54% FL/AC ??0.17 AC ?? 7.7 cm 14w1d (89x3z-81i0y) Hadl AC ??61% HC/AC ??1.27 (1.11 - 1.30) FL ?? 1.3 cm 14w0d (76f0b-34i2l) Hadl FL ??41% CI ? 0.78 HL ?? 1.2 cm 13w0d (36b3c-64q1u) Td HL ??34% GA for sonogram 14w1d (37u0n-25p8e) ?? Weight Estimate: based on (HL,BPD,HC,AC,FL) Avg ? Weight: 90 gm (77-103gm) Hadlock ? : 0lbs, 3oz ? Normal: 93 gm (70-116gm) Hadlock ? Wt% ? 41% for 14w0d Heart Rate: 143 bpm Amniotic Fluid Index: 04.3cm (Deepest Pocket) EVAL, PLACENTA Presentation: cephalic Umbilical Cord: 3 Vessels Placenta: anterior Heart Rate: 143 bpm Amniotic Fluid Volume: normal Anatomy!Normal!Abnormal!Suboptimal!Prev. Seen!Comments Cranium ?! ?? x ??! ?! ?! ?! Mdl (CSP/Thal! ?! ?! ? x ?! ?! Ventricles ?? ! ?! ?! ? x ?! ?! Choroid Plexu! ?? x ??! ?! ?! ?! Cerebellum ?? ! ?! ?! ? x ?! ?! Cisterna M. ??! ?! ?! ? x ?! ?! Nuchal Fold ??! ?! ?! ? x ?! ?! Profile ?! ?! ?! ? x ?! ?! Nasal Bone ?? ! ?! ?! ? x ?! ?! Lip ?! ?! ?! ? x ?! ?! Spine ?! ?! ?! ? x ?! ?! Lungs ?! ?! ?! ? x ?! ?! 4 Chamber Hea! ?! ?! ? x ?! ?! LVOT ? ! ?! ?! ? x ?! ?! RVOT ? ! ?! ?! ? x ?! ?! 3 Vessel View! ?! ?! ? x ?! ?! Cross-over ?? ! ?! ?! ? x ?! ?! Ductal Arch ??! ?! ?! ? x ?! ?! Aortic Arch ??! ?! ?! ? x ?! ?! Caval View ?? ! ?! ?! ? x ?! ?! Situs ?! ?! ?! ? x ?! ?! Diaphragm ?! ?! ?! ? x ?! ?! Stomach ?! ?? x ??! ?! ?! ?! Bowel ?! ?? x ??! ?! ?! ?! Kidneys ?! ?? x ??! ?! ?! ?! Bladder ?! ?? x ??! ?! ?! ?! 3 Vessel Cord! ?? x ??! ?! ?! ?! Cord In! ?? x ??! ?! ?! ?! Upper Extremi! ?? x ??! ?! ?! ?! Hands ?! ?! ?! ? x ?! ?! Lower Extreme! ?? x ??! ?! ?! ?! Feet ? ! ?! ?! ? x ?! ?! External Irma! ?! ?! ? x ?! ?! CLINICAL SUMMARY Study Number: 1 A single fetus is identified in cephalic presentation. ??The measurements today are consistent with appropriate growth for the ARMIN provided. ??The ARMIN selected is based on a prior ultrasound. ?? The amniotic fluid volume is normal. ??The placenta is anterior. No major malformations are seen within the limitations of ultrasound examination. ??The patient was advised that ultrasound does not allow detection of all structural or chromosomal abnormalities. IMPRESSION: 1. Single, live, IUP at 14w0d 2. Appropriate size 3. normal amniotic fluid volume 4. anterior placenta 5. Anatomy survey is incomplete and limited by early gestational age and positioning RECOMMEND: ??Follow up ultrasound in 6 weeks to complete anatomic survey. No follow up appointments were made. Thank you for allowing us the opportunity to care for your patient. Fam Jones MD <Electronic Signature> ??04/20/2018 11:43am Revised Onel Allan MD [facility] ORDERABLES Care Teams Ops Analyst Relationship Specialty Start Date End Date Jean Ng MD [address] [place] [id number] PCP - General 07/22/20
--- OUTSIDE RECORDS SUMMARY | 2024-03-09 13:55 | XMS_ITS | Clinical Summary ---
Author Organization [facility] Address [address] [place] [address]. [place], [place] [address] [place] [address] Care Team Providers Care Resaw Operator Name Role Phone Miracle Cruz Tere MELTON Primary Care Provider [phone] Allergies No known active allergies Medications No known medications Social History Tobacco Use Types Packs/Day Years Used Date Smoking Tobacco: Never Smokeless Tobacco: Never Tobacco Cessation:Counseling Given: Not Answered Alcohol Use Standard Drinks/Week Comments Not Currently 0 (1 standard drink = 0.6 oz pur e alcohol) Comments No Sex and Gender Information Value Date Recorded Sex Assigned at Not on file Legal Sex Female 7:52 AM CDT Gender Identity Not on file Sexual Orientation Not on file Last Filed Vital Signs Vital Sign Reading Time Taken Comments Blood Pressure 128/76 03/13/2022 8:15 PM HOG HANDLER Pulse 88 03/13/2022 8:15 PM HOG HANDLER Temperature 36.5 ??C (97.7 ??F) 03/13/2022 8:15 PM CS T Respiratory Rate 16 03/13/2022 8:15 PM HOG HANDLER Oxygen Saturation 97% 03/13/2022 8:15 PM HOG HANDLER Inhaled Oxygen Concentration - - Weight 87.1 kg (192 lb) 03/13/2022 3:00 PM HOG HANDLER Height 157.5 cm (5' 2 ) 03/13/2022 3:00 PM HOG HANDLER Body Mass Index 35.12 03/13/2022 3:00 PM HOG HANDLER Plan of Treatment Health Maintenance Due Date Last Done Comments Cervical Cancer Screening Pa p Smear (Age 30 to 64) Every 3 Years 1989 Annual Physical 1992 Hepatitis C 2007 Hepatitis B Vaccines (1 of 3 - 19+ 3-dose series) 2008 Cervical Cancer Screening Pa p with HPV Testing (Age 30 to 64) Every 5 Years 2019 Cervical Cancer Screening wi th HPV 2019 COVID-19 Vaccine ( - 2023-2 5 season) 2023 Influenza Adult (#1) 2023 10/24/2018 DTaP, Tdap and Td Vaccines ( 3 - Td or Tdap) 09/08/2028 09/08/2018, 05/29/2014 HPV Vaccines Aged Out No longer eligi ble based on patient's age to complete this topic Meningococcal Vaccine Aged Out No navjot josseline eligible based on patient's age to complete this topic Pneumococcal Vaccine: Pediatrics (0 to 5 Years) and At-Risk Patients (6 to 64 Years) Aged Out No longer eligible b ased on patient's age to complete this topic RSV Immunizations Under 20 Months Aged Out No longer eligible b ased on patient's age to complete this topic Insurance [facility] Care Teams Resaw Operator Relationship Specialty Start Date End Date Miracle Cruz FNP [address] [place] [id number] PCP - General Nurse Practitioner Family 03/13/22
--- OUTSIDE RECORDS SUMMARY | 2024-03-09 13:55 | XMS_ITS | Referral Summary ---
Author Organization [facility] Address [address] [place] [address] Care Team Providers Care Microfilm Equipment Inspector Name Role Phone No, Physician Primary Care Provider [phone] Allergies Active Allergy Reactions Criticality Noted Date Comments Other Hives Medium 04/03/2019 Wasp sting Medications norethindrone (MICRONOR) 0.35 mg tablet Take 1 tablet by mouth daily 02/10/2019 Active PNV 39-iron cmn-yajmo-tqg-dh a 30 mg iron-1.2 mg-55 mg-265 mg [...] thrombosis) 04/03/2019 Overview (04/03/2019): Following knee surgery Social History Tobacco Use Types Packs/Day Years [...] on file Legal Sex Female 8:41 AM CCU NURSE Gender Identity Female 06/02/2023 11:56 AM CDT Sexual Orientation Straight 06/02/2023 11 :56 AM CDT Last Filed Vital Signs Vital Sign Reading Time Taken Comments Blood Pressure 120/88 06/09/2023 9:02 AM CDT Pulse 59 06/09/2023 9:02 AM CDT Temperature 36.6 ??C (97.9 ??F) 06/09/2023 9:02 AM CD T Respiratory Rate 16 04/03/2019 9:00 AM CCU NURSE Oxygen Saturation 98% 06/09/2023 9:02 AM CDT Inhaled Oxygen Concentration - - Weight 93.2 kg (205 lb 8 oz) 06/09/2023 9:02 AM CDT Height 160 cm (5' 2.99 ) 06/09/2023 9:02 AM CDT Body Mass Index 36.41 06/09/2023 9:02 AM CDT Plan of Treatment Not on file Procedures Procedure Name Priority Date/Time Associated Diagnosis Comments HEPATITIS C RNA, QUANTITATIVE, PCR Routine 06/09/2023 9:20 AM CDT HCV antibody positive from Last 3 Months or Most Recently Relevant to Health Maintenance Results * Hepatitis C (HCV) RNA PCR, quantitative Blood (06/09/2023 9:20 AM CDT) [facility] [address] HCV RNA result Not Detected [facility] Comment: The quantifiable range of this assay is 15 IU/mL to 100,000,000 IU/mL (1.18 log IU/mL to 8.00 log IU/mL). Testing was performed by the TANISHA 6800 HCV Test ([employer] Testing performed at [facility] Current Interpretive Data was last revised on 2020 Blood 06/09/2023 9:20 AM CDT 06/09/2023 1:47 PM CDT us Yolie Jacobson NP LAB MICROBIOLOGY - GENERA L ORDERABLES Final Result [facility] [address] [facility] Department [place] [address] [facility] from Last 3 Months or Most Recently Relevant to Health Maintenance Insurance [employer] [place] Care Teams Microfilm Equipment Inspector Relationship Specialty Start Date End Date No, Physician PCP - General 04/03/19
--- OUTSIDE RECORDS SUMMARY | 2024-03-09 13:55 | XMS_ITS | Clinical Summary ---
Author Organization [facility] Address [address] [place] [address] Care Team Providers Care Surveyor Helper Rod Name Role Phone Jean Ng MD Primary Care Provider [phone] Source Comments [facility],non-owned Affiliates and Associated Physician Practices is amultiple site organization consisting of ambulatory clinics and hospital sitesin [place], [place], [place] and [place]. This disclosure is being madepursuant to the Care Everywhere program and may not contain all information available regarding this patient. Last updated 17.[facility] Allergies No known active allergies Medications * Be aware that medications may not be up to date on this document. Alwaysverify current medications with the patient. Medication Sig Dispensed Refills Start Date End Date Status Tsdvjrqv-Mqt-Ya-FA ( VITAMIN WITH IRON) tabletIndications:Pre gnancy Take 1 tablet by mouth once daily Reasons: Active Active Problems Problem Noted Date Diagnosed Date Supervision of high-risk of quique vaughn 04/19/2018 Encounter for scre ening for malformation using ultrasound 04/19/2018 History of DVT (deep vein thrombosis) Overview (04/13/2018): Following knee surgery Family History Medical History Relation Name Comments Cancer - Breast Maternal Grandmother Hypertension Mother Relation Name Status Comments Maternal Grandmother Mother Social History Tobacco Use Types Packs/Day Years [...] Comments Blood Pressure 126/74 04/20/2018 11:09 AM BUILD TECHNICIAN Pulse 71 04/20/2018 11:09 AM BUILD TECHNICIAN Temperature - - Respiratory Rate - - Oxygen Saturation - - Inhaled Oxygen Concentration - - Weight 84.8 kg (187 lb) 04/20/2018 11:09 AM BUILD TECHNICIAN Height 160 cm (5' 3 ) 04/20/2018 11:09 AM BUILD TECHNICIAN Body Mass Index 33.13 04/20/2018 11:09 AM BUILD TECHNICIAN Plan of Treatment Health Maintenance Due Date Last Done Comments PAP SMEAR 1989 HIV SCREENING 2004 HEPATITIS C SCREENING 03/20/2007 DTAP/TDAP/TD VACCINES (1 - Tdap) 2008 HEPATITIS B VACCINE (1 of 3 - 19+ 3-dose series) 2008 COVID-19 VACCINE ( - 2023-2 5 season) 2023 INFLUENZA VACCINE (#1) 2023 DEPRESSION SCREENING 02/16/2024 ZOSTER VACCINE (1 of 2) 2039 HIB VACCINE Aged Out No longer eligi ble based on patient's age to complete this topic HPV VACCINE Aged Out No longer eligi ble based on patient's age to complete this topic MENINGOCOCCAL (Group B) VACCINE Aged Out No longer eligible based on patient's age to complete this topic MENINGOCOCCAL VACCINE Aged Out No navjot josseline eligible based on patient's age to complete this topic PNEUMOCOCCAL VACCINE Aged Out No long er eligible based on patient's age to complete this topic Care Teams Surveyor Helper Rod Relationship Specialty Start Date End Date Jean Ng MD [address] [place] [address] [place] [id number] PCP - General 07/22/20
--- OUTSIDE RECORDS SUMMARY | 2024-03-09 13:55 | XMS_ITS | Referral Summary ---
Author Organization [facility] Address [address] [place] [address] Care Team Providers Care Ballistics Expert Name Role Phone eJan Ng MD Primary Care Provider [phone] Source Comments [facility],non-owned Affiliates and Associated Physician Practices is amultiple site organization consisting of ambulatory clinics and hospital sitesin [place] and [place]. This disclosure is being madepursuant to the Care Everywhere program and may not contain all information available regarding this patient. Last updated 17.[facility] Allergies No known active allergies Medications * Be aware that medications may not be up to date on this document. Alwaysverify current medications with the patient. Medication Sig Dispensed Refills Start Date End Date Status Kdewuhdt-Oja-Fu-FA ( VITAMIN WITH IRON) tabletIndications:Pre gnancy Take 1 tablet by mouth once daily Reasons: Active Active Problems Problem Noted Date Diagnosed Date Supervision of high-risk of quique vaughn 04/19/2018 Encounter for scre ening for malformation using ultrasound 04/19/2018 History of DVT (deep vein thrombosis) Overview (04/13/2018): Following knee surgery Social History Tobacco Use [...] Comments Blood Pressure 126/74 04/20/2018 11:09 AM MIDDLE SCHOOL MATH TEACHER Pulse 71 04/20/2018 11:09 AM MIDDLE SCHOOL MATH TEACHER Temperature - - Respiratory Rate - - Oxygen Saturation - - Inhaled Oxygen Concentration - - Weight 84.8 kg (187 lb) 04/20/2018 11:09 AM MIDDLE SCHOOL MATH TEACHER Height 160 cm (5' 3 ) 04/20/2018 11:09 AM MIDDLE SCHOOL MATH TEACHER Body Mass Index 33.13 04/20/2018 11:09 AM MIDDLE SCHOOL MATH TEACHER Plan of Treatment Not on file Care Teams Ballistics Expert Relationship Specialty Start Date End Date Jean Ng MD [facility] [place] [address] [place] [id number] PCP - General 07/22/20
== END 2024-03-06 14:05 | disposition home or self-care (01) ==
LOC: ANHLAB 14:06
PROVIDERS: Visit Provider Obstetrics & Gynecology
DX: Z01.812 Encounter for preprocedural laboratory examination (principal)
CPT/HCPCS: 36415; 85027; 86592; 86850; 86900; 86901

== ENCOUNTER 2024-03-07 09:50 | Inpatient (IN) | payer BC, SELFPAY ==
[2024-03-07] VITALS (43 sets, daily range): BP systolic 108–135; BP diastolic 50–91; PULSE 62–86; RESP 10–22; TEMP 36.1–36.6; O2SAT 92–100; BMI 41.8
--- NOTE | 2024-03-07 09:50 | LDADM ---
This patient, Linda Ferguson, was admitted to Labor/Delivery/Recovery 120 on 03/07/24 at 09:50. Plans for labor, pain management and were discussed with patient. Patient/family oriented to hospital policies and general routines including ID bracelet, bed and alarms, visiting hours, pain management, procedures, bathroom and other care routines, personal items, smoking policy, room service/diet and guest tray routines, security routines, and visiting hours. Patient/Family are encouraged to report perceived risks to care and to ask questions if they do not understand what they are told or what they should do. See [facility] for further documentation.
[2024-03-07] MEDS: ACETAMINOPHEN 500 MG TABLET 1000 MG PO (10:14)
[2024-03-07] MEDS: LACTATED RINGERS 1,000 ML 125 ML IV CONT ×2 (10:33→11:46)
--- NOTE | 2024-03-07 11:33 | WPDANESEPPF ---
Anes - Initial Pre Proc Eval Procedure: Operation Date: 03/07/24 12:00 Proposed Procedures p Repeat Section - Onel Allan MD Date/Time: 03/07/24 11:33 Surgeon: Onel Allan MD Pre Op Diagnosis: C Section Patient Data Age: 33 Gender: F Height: 1.6 m Weight: 107 kg Last Vital Signs Temp 36.6 C 03/07/24 10:40 Pulse 83 03/07/24 11:30 BP 112/50 L 03/07/24 11:30 Allergies Allergy/AdvReac Type Severity Reaction Status Date / Time venom-wasp Allergy Severe Swelling Verified 02/17/24 15:36 hydrocodone AdvReac Mild Nausea Verified 02/17/24 15:36 Home Medications ?Medication ?Instructions ?Recorded ?Confirmed ?Type levothyroxine 50 mcg tablet 50 mcg PO DAILY 01/20/24 03/07/24 History vit no.95-ferrous 1 tablet PO DAILY 01/20/24 03/07/24 History fumarate 28 mg-folic acid 800 mcg tablet () Laboratory Tests 03/07/24 10:04 HIV 1&2 Ab/P24 Ag 4thGn Pending Patient hx anesthesia problems: none Family hx anesthesia problems: none Results Review: All pre-operative results and documents have been reviewed as part of the pre-operative evaluation. [facility] Past Medical History Medical History (Updated 03/07/24 @ 11:33 by Lokesh Lofton DO) Hypothyroidism Overweight DVT (deep venous thrombosis) Surgical History Surgical History S/P H/O dilation and curettage S/P ACL repair Family History Family History (Updated 02/17/24 @ 15:37 by Jessi Umanzor RN) Grandparent Breast cancer Social History Social History Smoking status: Never smoker Substance use: never Substance use type: does not use Do You Feel Safe in your Home?: Yes Lack of Transportation: No Lack of Food: Never True Current Housing: I Have Housing Concerned About Future Housing: No Difficulty Paying Gas/Electric Bills: No Difficulty Paying for Meds: No Currently Unemployed: No Education: Master's Degree or Higher Difficulty w/ Childcare or Family Care: No Living arrangements: with family Spiritual care concerns: No Anes - Eval Final PreProcedure Day of Procedure 03/07/24 11:33 Patient weight: morbidly obese Heart: regular rate and rhythm Lungs: clear to auscultation and normal air movement Airway: Mallampati scale class II Neurological: alert and oriented Last oral intake: >/= 8 hours ASA classification: III Emergent: no Anesthetic plan: proceed Anesthesia type and monitoring: regional spinal and standard monitoring Results Review: All pre-operative results and documents have been reviewed as part of the pre-operative evaluation. Informed Consent: The patient's anesthetic plan and its attendant risks and benefits were discussed with the patient/family/POA. Questions were solicited and answers provided to the satisfaction of the patient/family/POA.
[2024-03-07 11:38] LABS: HIV 1/2 Ab P24 Ag Result Negative (Negative)
--- NOTE | 2024-03-07 11:55 | PM.IMHP ---
H&P: HPI History of Present Illness Date/Time: 03/07/24 11:55 Chief Complaint: Here for repeat Narrative: 33 y/o at 39 4/7 weeks with prior , desiring repeat. GBS neg. History of DVT after knee surgery - we plan Lovenox in the time period. Hypothyroidism, well-controlled. Good movement. Does not feel contractions. No bleeding or leakage of fluid. Review of Systems Review of Systems: All systems reviewed & are unremarkable except as noted in HPI and below PMFSH Past Medical History Medical History (Updated 03/07/24 @ 11:59 by Onel Allan MD) History of DVT of lower extremity after knee surgery Hypothyroidism Overweight DVT (deep venous thrombosis) Surgical History Surgical History (Updated 03/07/24 @ 11:59 by Onel Allan MD) S/P H/O dilation and curettage S/P ACL repair Family History Family History Grandparent Breast cancer Social History Social History Smoking status: Never smoker Substance use: never Substance use type: does not use Do You Feel Safe in your Home?: Yes Lack of Transportation: No Lack of Food: Never True Current Housing: I Have Housing Concerned About Future Housing: No Difficulty Paying Gas/Electric Bills: No Difficulty Paying for Meds: No Currently Unemployed: No Education: Master's Degree or Higher Difficulty w/ Childcare or Family Care: No Living arrangements: with family Spiritual care concerns: No Meds Home Medications and Allergies Home Medications ?Medication ?Instructions ?Recorded ?Confirmed ?Type levothyroxine 50 mcg tablet 50 mcg PO DAILY 01/20/24 03/07/24 History vit no.95-ferrous 1 tablet PO DAILY 01/20/24 03/07/24 History fumarate 28 mg-folic acid 800 mcg tablet () Allergies Allergy/AdvReac Type Severity Reaction Status Date / Time venom-wasp Allergy Severe Swelling Verified 02/17/24 15:36 hydrocodone AdvReac Mild Nausea Verified 02/17/24 15:36 Vital Signs Vital Signs - 24 hr 03/07/24 10:31 03/07/24 10:40 03/07/24 10:46 Temperature 36.6 C Pulse Rate 77 78 Blood Pressure 110/64 108/59 L 03/07/24 11:00 03/07/24 11:15 03/07/24 11:30 Temperature Pulse Rate 78 73 83 Blood Pressure 111/67 118/68 112/50 L 03/07/24 11:45 Temperature Pulse Rate 81 Blood Pressure 119/78 Exam Const: Orientation/consciousness: patient oriented x3 Other: Well-developed, well-nourished female in no acute distress. Neck: Thyroid: thyroid normal Lymphatic: no lymphadenopathy noted (in neck, axilla or inguinal nodes) Resp: Effort & Inspection: normal respiratory effort Auscultation: clear to auscultation bilaterally Cardio: Rate: regular rate Rhythm: regular rhythm Heart sounds: S1 normal heart sound present and S2 normal heart sound present GI: Other: ABD: Soft, nontender, nondistended, gravid. NST reactive. TOCO: rare contractions. No guarding or rebound tenderness. No hepatosplenomegaly. : General: Yes no CVA tenderness Other: Cervix closed, thick Back/Spine/Pelvis: Back: no CVA tenderness Skin: General skin exam: normal color and no rashes or lesions noted Neuro: General: patient oriented x3 Extrem: Other: Extremities: nontender with no edema Psych: Mental Status: mental status grossly normal Affect: normal affect Assessment and Plan Assessment and plan (1) Term : Code(s): Z34.90 - Encounter for supervision of normal , unspecified, unspecified trimester Status: Acute Assessment and Plan: A: IUP at 39 4/7 weeks with prior , desires repeat. P: Offered repeat . She understands risks of surgery to include risks of anesthesia, risks of pain, infection, bleeding, blood products, thromboembolic phenomena and damage to adjacent structures such as bowel, bladder, ureters, blood vessels and nerves. She understands all these risks and elects to proceed with surgery. (2) History of delivery: Code(s): Z98.891 - History of uterine scar from previous surgery Status: Acute (3) History of DVT of lower extremity: Code(s): Z86.718 - Personal history of other venous thrombosis and embolism Status: Acute
[2024-03-07] MEDS: FAMOTIDINE 20 MG/2 ML VIAL IV PUSH (11:57)
[2024-03-07] MEDS: ONDANSETRON INJ 4 MG/2 ML VIAL IV PUSH (11:57)
--- NOTE | 2024-03-07 12:00 | WPDHPUPDATE1 ---
History and Physical Update Update Date/Time: 03/07/24 12:00 History and Physical has been reviewed, including an updated exam of the patient. There are NO changes in the patient's condition. Risks, benefits, and alternatives have been discussed and questions answered. Patient agrees to proceed with procedure.
[2024-03-07] MEDS: ceFAZolin 2 GM/D5W 50 ML 2 GM/50 ML BAG IVPB (12:06)
--- NOTE | 2024-03-07 13:26 | P.PCNOB_ITS ---
OB - Delivery Note Procedure Delivery date: 03/07/24 Pre-op diagnosis: Previous Delivery Post-op Diagnosis: Same Induction method: None Delivery monitor: External FHT and External Uterine Procedure Performed: Repeat Surgeon: Onel Allan MD Anesthesia type: Spinal Description of Procedure/Findings: Findings: Dense adhesions between the serosal surface of the uterus and the anterior abdominal wall. Otherwise, unremarkable uterus, tubes and ovaries. Techniques: The patient was taken to the operating room where she was prepared and draped in the usual sterile fashion in dorsal supine position with a leftward tilt. She received cefazolin preoperatively. Spinal anesthesia was found to be adequate. A Pfannenstiel skin incision was made along the previous scar line and was carried through to the underlying layer of the fascia. The fascia was incised in the midline and the incision was extended laterally. The fascia was dissected free of the underlying rectus muscles. The rectus muscles were in the midline. The peritoneum was identified, tented up and entered sharply. The peritoneal incision was extended superiorly and inferiorly with good visualization of the bladder. The bladder blade was placed. The vesicouterine peritoneum was identified, tented up and entered sharply. The incision was extended laterally and the bladder flap was developed. The bladder blade was replaced. The uterus was then incised sharply in a transverse fashion along the lower uterine segment. The incision was extended laterally. The 's head was delivered atraumatically to the sterile field, followed by the body. The nose and mouth were bulb suctioned. After a delay, the cord was clamped and cut. The infant was handed off the field. Cord blood was collected. The placenta was removed manually and was passed off the field. The uterus was exteriorized and cleared of all clots and debris. The uterine incision was reapproximated using 0 Monocryl in a running, locked fashion. A second, imbricating layer of the same suture was run. Excellent hemostasis resulted as did excellent reapproximation of the normal anatomy. The uterus was returned the abdomen. The pelvis was irrigated copiously with warmed normal saline. Surgicel powder was applied and rigorous hemostasis was assured. The fascial layer was reapproximated using 0 Vicryl in a running fashion. The skin was closed with a running, subcuticular stitch of 4 0 Vicryl. Dermaflex was applied externally. Sponge, lap, needle and instrument counts were correct. The patient was taken to the recovery room in stable condition. The infant went to the nursery in stable condition. I was present and scrubbed the entire procedure. Specimen: Yes (cord blood) Estimated Blood Loss: 730 Drains: Yes ([place]) Packing: No Pathology: Yes (cord blood) Complications: None Condition: Stable Disposition: PACU [place] Baby Date of : 03/07/24 Time of : 12:36 Gestational Age by Date: 39 gender: Female Weight (pounds): 7 Weight (ounces): 13 presentation: vertex Placenta delivery description: Manual Removal and Normal Configuration Cord Vessel Description: 3 Vessels and Delayed Cord Clamping score one minute: 8 score five minutes: 9
--- NOTE | 2024-03-07 13:33 | PM.OBDSVD ---
DS: Admitting Diagnosis Discharge Date 03/10/24 Admitting Diagnosis IUP at 39 4/7 weeks Prior DS: Discharge Diagnosis Discharge Diagnosis (1) delivery delivered: Code(s): O82 - Encounter for delivery without indication Status: Acute OB - DS: Summary OB Procedures : None OB Procedures Intrapartum: OB Procedures: : None Peripartum Data Procedures: Procedures Operation Date: 03/07/24 12:00 <No data on this case meets the specified criteria> Time Spent with Patient Time attestation: Total time spent providing and/or coordinating discharge services: DS: Data Data Completed and Pending Labs on day of discharge: Labs from last 24 hours 03/07/24 10:04 HIV 1&2 Ab/P24 Ag 4thGn Negative Discharge Plan Discharge Attending physician on discharge: Onel Allan Discharging Clinician: Onel Allan Patient Disposition: Home, Self-Care Activity: may shower, may drive after 2 weeks and pelvic rest Diet: regular Wound Care Instructions: incision open to air Discharge Instructions: Call or return if temperature above 100.4? F, increased abdominal pain, increased vaginal bleeding or any new problems. Patient Language: Latvian Stand Alone Forms: General Discharge Information Follow-up/Referrals: Onel Allan MD [Physician] - 4 Weeks Discharge Medications: New hydrocodone-acetaminophen 5-325 mg tablet 1 - 2 tablet PO Q6H PRN (Reason: pain) Qty: 30 0RF ibuprofen 600 mg tablet 600 mg PO Q6H PRN (Reason: cramps) Qty: 30 0RF ferrous sulfate 325 mg (65 mg iron) tablet 325 mg PO DAILY Qty: 30 0RF enoxaparin [Lovenox] 30 mg/0.3 mL syringe 30 mg subcut DAILY Qty: 15 0RF Continued levothyroxine 50 mcg tablet 50 mcg PO DAILY PNV cmb#95-ferrous fumarate-FA [] 28 mg iron- 800 mcg Tablet 1 tablet PO DAILY Date of admission: 03/07/24 09:50 Primary Care Provider: UNKNOWN,DOCTOR Admitting Provider: Onel Allan Attending physician on admission: Onel Allan Condition: Stable
[2024-03-07] MEDS: OXYTOCIN 30 UNITS/NS 500 ML 30 UNITS/500 ML BAG 125 UNITS IV CONT (14:48)
--- NOTE | 2024-03-07 15:37 | OBPPTRN ---
Patient transferred to post room #287 via stretcher. Support person present. Oriented to unit, room, information board, rooming in, admission packet and security measures. Patient verbalizes understanding.
[2024-03-07] MEDS: KETOROLAC 15 MG/ML VIAL (*BKC) IV PUSH (17:33)
[2024-03-07] MEDS: ACETAMINOPHEN 325 MG TABLET 650 MG PO (17:33)
[2024-03-07] MEDS: SIMETHICONE 80 MG TAB.CHEW PO (17:34)
[2024-03-07] MEDS: DOCUSATE SODIUM 100 MG CAPSULE PO (17:34)
[2024-03-07] MEDS: DEXTROSE 5%/0.45% SOD CHL 1,000 ML 125 ML IV CONT (19:18)
[2024-03-07] MEDS: ENOXAPARIN 30 MG/0.3 ML SYRINGE SUB-Q (21:01)
[2024-03-07] MEDS: LIDOCAINE 5% PATCH 1 PATCH TRANSDERM (21:01)
[2024-03-08] MEDS: ACETAMINOPHEN 325 MG TABLET 650 MG PO ×4 (00:50→19:48)
[2024-03-08] MEDS: KETOROLAC 15 MG/ML VIAL (*BKC) IV PUSH ×3 (00:50→13:46)
[2024-03-08] MEDS: KCL 20 MEQ/D5/0.45% SOD CHL 1,000 ML 125 ML IV CONT (03:39)
[2024-03-08 04:15] VITALS: BP 111/69; PULSE 71; RESP 16; TEMP 36.3; O2SAT 97
[2024-03-08 04:55] LABS: Basophils Percent Auto 0.2 % (0.2-1.2); Eosinophils Percent Auto 0.1 % (0-4.4); Hematocrit 29.5 % (37.0-47.0); Hemoglobin 9.4 g/dL (12.0-15.0); Immature Granulocyte Absolute 0.04 K/mm3 (0.00-0.031); Immature Granulocyte Percent A 0.4 % (0-0.5); Lymphocytes Absolute Auto 1.53 K/mm3 (0.9-3.2); Lymphocytes Percent Auto 14.6 % (18.3-44.2); Mean Corpuscular HGB Conc 31.9 g/dl (32-36); Mean Corpuscular Hemoglobin 28.7 pg (26-34); Mean Corpuscular Volume 89.9 fl (80-100); Mean Platelet Volume 10.1 fl (7.4-10.4); Monocytes Absolute Auto 0.6 K/mm3 (0.1-0.6); Monocytes Percent Auto 5.2 % (2.6-8.5); Neutrophils Absolute Auto 8.4 K/mm3 (1.3-6.7); Neutrophils Percent Auto 79.5 % (45.5-73.1); Platelet Count Result 277 k/mm3 (150-375); Red Blood Count 3.28 M/mm3 (4.2-5.4); Red Cell Distribution Width 13.9 % (11.5-14.5); White Blood Count 10.5 K/mm3 (4.5-10.0)
[2024-03-08] MEDS: LEVOTHYROXINE SODIUM 50 MCG TABLET PO (06:59)
[2024-03-08 07:50] VITALS: BP 102/61; PULSE 66; RESP 16; TEMP 36.2; O2SAT 98
--- NOTE | 2024-03-08 08:34 | P.PNOB_ITS ---
OB - PN: Subj Subjective Date/time seen: 03/08/24 08:34 Narrative: Pain OK. Tolerating diet. OB - PN: Obj Data Labs 03/08/24 04:14 Labs: Laboratory Results - last 24 hr 03/07/24 03/08/24 10:04 04:14 WBC 10.5 H RBC 3.28 L Hgb 9.4 L Hct 29.5 L MCV 89.9 MCH 28.7 MCHC 31.9 L RDW 13.9 Plt Count 277 MPV 10.1 Immature Gran % (Auto) 0.4 Neut % (Auto) 79.5 H Lymph % (Auto) 14.6 L [place] % (Auto) 5.2 Eos % (Auto) 0.1 Baso % (Auto) 0.2 Lymph # (Auto) 1.53 [place] # (Auto) 0.6 Eos # (Auto) 0.0 Baso # (Auto) 0.0 Abs Immat Gran (auto) 0.04 H Absolute Neuts (auto) 8.4 H Absolute Nucleated RBC 0.000 Nucleated RBC % 0.0 HIV 1&2 Ab/P24 Ag 4thGn Negative OB - PN A/P Plan Comments: A: POD#1, doing well. P: Routine care. Exam 2 Narrative: AVSS I/O OK ABD soft, nontender, fundus firm. Incision c/d/i. EXT nontender
--- NOTE | 2024-03-08 09:08 | PC.NURSE ---
On 03/08/24, the student, Marilee Maldonado, provided care and completed [facility] documentation on this patient. I have reviewed the student's documentation and agree with the findings.
[2024-03-08] MEDS: POLYSACCHARIDE IRON COMPLEX 150 MG CAPSULE PO ×2 (09:37→17:14)
[2024-03-08] MEDS: SIMETHICONE 80 MG TAB.CHEW PO ×3 (09:37→17:14)
[2024-03-08] MEDS: MULTIVIT/MIN/PREN/FOL AC/IRON TABLET 1 TAB PO (09:37)
[2024-03-08] MEDS: DOCUSATE SODIUM 100 MG CAPSULE PO ×2 (09:38→17:13)
[2024-03-08 12:15] VITALS: BP 129/70; PULSE 76; RESP 16; TEMP 36.4; O2SAT 98
--- NOTE | 2024-03-08 13:20 | PC.NURSE ---
Mother called this RN to bedside to do a weighted feed per parental request. Infant pre-feed weight: 3358g post-feed weight 3356g. remains on blood sugars which have been inconsistent. Mother encouraged to supplement and begin pumping. Breast pump provided. Instructions given on cleaning, care, usage, that there should be no pain, pumping schedule for milk production, collection, and storage of human milk. Patient was assessed for correct placement, flange size, to pump for comfort and nipple stretching/stimulation for adequate milk production every 3 hours (8 times in 24 hours) 1-2 times at night. Parents are encouraged to record the pumping schedule on the feeding sheet.?Mother voiced understanding of the education shared along with mom/baby guide and the pump measurement, flange fit handout for additional resource information. Reported to the Primary RN.
--- NOTE | 2024-03-08 13:47 | WPDANLDPN2 ---
Anes-Prog Note L&D Date/Time: 03/08/24 13:47 Comfortable throughout: section Neuraxial method: spinal Epidural/Spinal procedure site: clean & non-tender Neuro status: Neuro function grossly intact. Cardiovascular status: normal Respiratory status: normal Airway patency: baseline Mental status: baseline Post-Op hydration status: normal Vital Signs: Last Vital Signs Temp 97.6 F 03/08/24 12:15 Pulse 76 03/08/24 12:15 Resp 16 03/08/24 12:15 BP 129/70 03/08/24 12:15 Pulse Ox 98 03/08/24 12:15 O2 Del Method Room Air 03/07/24 20:35 Pain score (VAS): 0 I/O: Intake & Output 03/07/24 03/08/24 03/08/24 23:59 07:59 15:59 Intake Total 240 Output Total 375 400 Balance -375 -160 Post-procedural complaints: none Patient feedback: Patient satisfied with anesthetic care.
--- NOTE | 2024-03-08 13:47 | WPDANLDNPN2 ---
Anes-Prog Note L&D-Neuraxial Date/Time: 03/08/24 13:47 Neuraxial medications: intrathecal PF morphine Opiod-related complaints: none Patient feedback: Patient satisfied with post-operative pain management.
[2024-03-08] MEDS: IBUPROFEN 600 MG TABLET PO (19:48)
[2024-03-08 19:50] VITALS: BP 128/86; PULSE 91; RESP 16; TEMP 36.9; O2SAT 98
[2024-03-08] MEDS: ENOXAPARIN 30 MG/0.3 ML SYRINGE SUB-Q (21:40)
[2024-03-09] MEDS: ACETAMINOPHEN 325 MG TABLET 650 MG PO ×4 (02:33→20:34)
[2024-03-09] MEDS: IBUPROFEN 600 MG TABLET PO ×4 (02:33→20:35)
[2024-03-09] MEDS: LANOLIN (LANSINOH) 7.5 GM CREAM 1 APPLIC TOPICAL (06:57)
--- NOTE | 2024-03-09 08:17 | P.PNOB_ITS ---
OB - PN: Subj Subjective Date/time seen: 03/09/24 08:17 Narrative: Pain OK. Tolerating diet. Would like to go home. OB - PN: Obj Data Labs 03/08/24 04:14 OB - PN A/P Plan day: 2 Comments: A: POD#2, doing well. P: Home to f/u 4 weeks. Exam 2 Narrative: AVSS ABD soft, nontender, fundus firm. Incision c/d/i. EXT nontender
[2024-03-09 08:34] VITALS: BP 130/81; PULSE 73; RESP 16; TEMP 36.8; O2SAT 97
[2024-03-09] MEDS: LEVOTHYROXINE SODIUM 50 MCG TABLET PO (08:50)
[2024-03-09] MEDS: SIMETHICONE 80 MG TAB.CHEW PO ×3 (08:50→17:17)
[2024-03-09] MEDS: MULTIVIT/MIN/PREN/FOL AC/IRON TABLET 1 TAB PO (08:51)
[2024-03-09] MEDS: DOCUSATE SODIUM 100 MG CAPSULE PO ×2 (08:51→17:17)
[2024-03-09] MEDS: POLYSACCHARIDE IRON COMPLEX 150 MG CAPSULE PO ×2 (08:51→17:17)
--- NOTE | 2024-03-09 09:24 | PC.NURSE ---
On 03/09/24, the [facility] students,George and Genia, provided care and completed [facility] documentation on this patient. I have reviewed the student's documentation and agree with the findings.
[2024-03-09] MEDS: LIDOCAINE 5% PATCH 1 PATCH TRANSDERM (12:41)
--- NOTE | 2024-03-09 15:44 | PC.NURSE ---
1500. Met with patient to assess and discuss needs related to feeding. Mother states it is her intention to exclusively breastfeed. Infant has been on blood sugar checks since but has recently been given the clear by the segmental wall installer to stop checking blood sugars and per the segmental wall installer they can supplement if they want to after . Discussed with mom her options and reviewed what a good breastfeed session should look like, and reviewed listening for swallows. Reviewed signs of infant being full versus still hungry. We discussed mom should limit time at the breast to 30 min and if infant seems hungry after to supplement. Encouraged mother to breastfeed 8-12 times in 24 hours (approximately every 2-3 hours), watching for early feeding cues. If infant is sleepy, unwrap and place baby skin to skin. Discussed signs that is effectively , i.e. sufficient voids and stools, jaundice within normal limits, <10% weight loss from . Mother educated on milk production, supply and demand, and expectations for in the immediate period. Encouraged feeding on demand and feeding durations of 15 minutes or greater. Discussed breast/nipple care with good hand hygiene, signs of a correct latch, listening for infant swallows and documenting feedings on the feeding sheet. Mother instructed to call for assistance if infant will not feed every 3 hours, if there is discomfort with , or if mother has any other questions or concerns. resources provided including the Mom and Baby Guide and name/number on communication board. Mother verbalized understanding. Updated patient?s primary RN with education provided.???
--- NOTE | 2024-03-09 15:56 | PC.NURSE ---
1420. Mom requests a medela Breast pump thru insurance at this time. Paperwork filled out and faxed to [facility] at this time. Instructions given on cleaning, care, usage, that there should be no pain, pumping schedule for milk production, collection, and storage of human milk. Patient was assessed for correct placement, flange size, to pump for comfort and nipple stretching/stimulation for adequate milk production every 3 hours (8 times in 24 hours) 1-2 times at night. Parents are encouraged to record the pumping schedule on the feeding sheet.?Mother voiced understanding of the education shared along with mom/baby guide and the pump measurement, flange fit handout for additional resource information. Reported to the Primary RN.
--- OUTSIDE RECORDS SUMMARY | 2024-03-09 17:06 | XMS_ITS | Clinical Summary ---
Author Organization [facility] Address [address] [place] [address] Care Team Providers Care Hay Chopper Name Role Phone Jean Ng MD Primary Care Provider [phone] Source Comments [facility],non-owned Affiliates and Associated Physician Practices is amultiple site organization consisting of ambulatory clinics and hospital sitesin [place], [place], [place] and [place]. This disclosure is being madepursuant to the Care Everywhere program and may not contain all information available regarding this patient. Last updated 17.[facility] Allergies No known active allergies Medications * Be aware that medications may not be up to date on this document. Alwaysverify current medications with the patient. Medication Sig Dispensed Refills Start Date End Date Status Zzwprbgz-Gol-Sx-FA ( VITAMIN WITH IRON) tabletIndications:Pre gnancy Take [...] Comments Blood Pressure 126/74 04/20/2018 11:09 AM HEAD DOFFER Pulse 71 04/20/2018 11:09 AM HEAD DOFFER Temperature - - Respiratory Rate - - Oxygen Saturation - - Inhaled Oxygen Concentration - - Weight 84.8 kg (187 lb) 04/20/2018 11:09 AM HEAD DOFFER Height 160 cm (5' 3 ) 04/20/2018 11:09 AM HEAD DOFFER Body Mass Index 33.13 04/20/2018 11:09 AM HEAD DOFFER Plan of Treatment Health Maintenance Due Date [...] age to complete this topic Care Teams Hay Chopper Relationship Specialty Start Date End Date Jean Ng MD [address] [place] [address] [place] [id number] PCP - General 07/22/20
--- OUTSIDE RECORDS SUMMARY | 2024-03-09 17:06 | XMS_ITS | Referral Summary ---
Author Organization [facility] Address [address] [place] [address] Care Team Providers Care Family Consumer Science Fcs Teacher Name Role Phone Jean Ng MD Primary Care Provider [phone] Source Comments [facility],non-owned Affiliates and Associated Physician Practices is amultiple site organization consisting of ambulatory clinics and hospital sitesin [place], [place], [place] and [place]. This disclosure is being madepursuant to the Care Everywhere program and may not contain all information available regarding this patient. Last updated 17.[facility] Allergies No known active allergies Medications * Be aware that medications may not be up to date on this document. Alwaysverify current medications with the patient. Medication Sig Dispensed Refills Start Date End Date Status Jwimqjfz-Hqa-Ir-FA ( VITAMIN WITH IRON) tabletIndications:Pre gnancy Take [...] Comments Blood Pressure 126/74 04/20/2018 11:09 AM FUEL CELL ASSEMBLER Pulse 71 04/20/2018 11:09 AM FUEL CELL ASSEMBLER Temperature - - Respiratory Rate - - Oxygen Saturation - - Inhaled Oxygen Concentration - - Weight 84.8 kg (187 lb) 04/20/2018 11:09 AM FUEL CELL ASSEMBLER Height 160 cm (5' 3 ) 04/20/2018 11:09 AM FUEL CELL ASSEMBLER Body Mass Index 33.13 04/20/2018 11:09 AM FUEL CELL ASSEMBLER Plan of Treatment Not on file Care Teams Family Consumer Science Fcs Teacher Relationship Specialty Start Date End Date Jean Ng MD [facility] [address] [place] [id number] PCP - General 07/22/20
--- OUTSIDE RECORDS SUMMARY | 2024-03-09 17:06 | XMS_ITS | Referral Summary ---
Author Organization [facility] [address] [facility] Address [address] [place] [address] Care Team Providers Care Childbirth Educator Name Role Phone No, Physician Primary Care Provider Allergies Active Allergy Reactions Criticality Noted Date Comments Other Hives Medium 04/03/2019 Wasp sting Medications norethindrone (MICRONOR) 0.35 mg tablet Take 1 tablet by mouth daily 02/10/2019 Active PNV 39-iron fyy-utlsd-rjv-dh a 30 mg iron-1.2 mg-55 mg-265 mg [...] on file Legal Sex Female 8:41 AM SALES SUPPORT ADVISOR Gender Identity Female 06/02/2023 11:56 AM CDT Sexual Orientation Straight 06/02/2023 11 :56 AM CDT Last Filed Vital Signs Vital Sign Reading Time Taken Comments Blood Pressure 120/88 06/09/2023 9:02 AM CDT Pulse 59 06/09/2023 9:02 AM CDT Temperature 36.6 ??C (97.9 ??F) 06/09/2023 9:02 AM CD T Respiratory Rate 16 04/03/2019 9:00 AM SALES SUPPORT ADVISOR Oxygen Saturation 98% 06/09/2023 9:02 AM CDT [...] PCR, quantitative Blood (06/09/2023 9:20 AM CDT) [facility] HCV RNA result Not Detected [facility] Comment: The quantifiable range of this assay is 15 IU/mL to 100,000,000 IU/mL (1.18 log IU/mL to 8.00 log IU/mL). Testing was performed by the TANISHA 6800 HCV Test ([employer]ruction by [employer] Testing performed at [facility] Current Interpretive Data was last revised on 2020 Blood 06/09/2023 9:20 AM CDT 06/09/2023 1:47 PM CDT us Yolie Jacobson NP LAB MICROBIOLOGY - GENERA L ORDERABLES Final Result [facility] [address] [facility] Department [place] [address] [facility] from Last 3 Months or Most Recently Relevant to Health Maintenance Insurance [employer] [place] Care Teams Childbirth Educator Relationship Specialty Start Date End Date No, Physician PCP - General 04/03/19
--- OUTSIDE RECORDS SUMMARY | 2024-03-09 17:06 | XMS_ITS | Clinical Summary ---
Author Organization [facility] [address] [facility] Address [address] [place] [address] Care Team Providers Care Central Office Operator Supervisor Name Role Phone No, Physician Primary Care Provider [phone] Allergies Active Allergy Reactions Criticality Noted Date Comments Other Hives Medium 04/03/2019 Wasp sting Medications norethindrone (MICRONOR) 0.35 mg tablet Take 1 tablet by mouth daily 02/10/2019 Active PNV 39-iron tfc-nmqme-ruf-dh a 30 mg iron-1.2 mg-55 mg-265 mg [...] on file Legal Sex Female 8:41 AM CORPORATE STAFF ACCOUNTANT Gender Identity Female 06/02/2023 11:56 AM CDT Sexual Orientation Straight 06/02/2023 11 :56 AM CDT Obstetrics History Last Filed Vital Signs Vital Sign Reading Time Taken Comments Blood Pressure 120/88 06/09/2023 9:02 AM CDT Pulse 59 06/09/2023 9:02 AM CDT Temperature 36.6 ??C (97.9 ??F) 06/09/2023 9:02 AM CD T Respiratory Rate 16 04/03/2019 9:00 AM CORPORATE STAFF ACCOUNTANT Oxygen Saturation 98% 06/09/2023 9:02 AM CDT [...] PCR, quantitative Blood (06/09/2023 9:20 AM CDT) [facility] HCV RNA result Not Detected [facility] Comment: The quantifiable range of this assay is 15 IU/mL to 100,000,000 IU/mL (1.18 log IU/mL to 8.00 log IU/mL). Testing was performed by the TANISHA 6800 HCV Test ([employer] Testing performed at [facility] Current Interpretive Data was last revised on 2020 Blood 06/09/2023 9:20 AM CDT 06/09/2023 1:47 PM CDT Yolie Jacobson NP LAB MICROBIOLOGY - GENERA L ORDERABLES Final Result [facility] [address] [facility] Department [place] [address] [facility] from Last 3 Months or Most Recently Relevant to Health Maintenance Insurance [place] Care Teams Central Office Operator Supervisor Relationship Specialty Start Date End Date No, Physician PCP - General 04/03/19
--- OUTSIDE RECORDS SUMMARY | 2024-03-09 17:06 | XMS_ITS | Patient Health Summary ---
Author Organization [facility] Address [address] [place] [address] Care Team Providers Care Building Carpenter Helper Name Role Phone Jean Ng MD Primary Care Provider Note from [facility],non-owned Affiliates and Associated Physician Practices is amultiple site organization consisting of ambulatory clinics and hospital sitesin [place], [place], [place] and [place]. This disclosure is being madepursuant to the Care Everywhere program and may not contain all information available regarding this patient. Last updated 17.[facility] Allergies No known active allergies Medications * Be aware that medications may not be up to date on this document. Alwaysverify current medications with the patient. * Sqxxzwsx-Rnc-Sw-FA ( VITAMIN WITH IRON) tablet Take 1 [...] Comments Blood Pressure 126/74 04/20/2018 11:09 AM SNOW TECHNICIAN Pulse 71 04/20/2018 11:09 AM SNOW TECHNICIAN Temperature - - Respiratory Rate - - Oxygen Saturation - - Inhaled Oxygen Concentration - - Weight 84.8 kg (187 lb) 04/20/2018 11:09 AM SNOW TECHNICIAN Height 160 cm (5' 3 ) 04/20/2018 11:09 AM SNOW TECHNICIAN Body Mass Index 33.13 04/20/2018 11:09 AM SNOW TECHNICIAN Procedures * SONOGRAM - COMPLETE(Performed 04/20/2018) Performed for Thrombophilia affecting , antepartum (HCC), Encounter for screening for malformation using ultrasound (HCC), Supervision of high-risk of young multigravida (HCC), History of DVT (deep vein thrombosis) Results * SONOGRAM - COMPLETE (04/20/2018 9:24 AM SNOW TECHNICIAN) Anatomical Region Laterality Modality Other 04/20/2018 9:24 AM SNOW TECHNICIAN Narrative 04/20/2018 12:41 PM SNOW TECHNICIAN ? [facility] ? [facility] ?PHONE: ??FAX: Pat. Name: ?DIANNA FERGUSON. No: ?[id number] Study Date: ?? 04/20/2018 ??9:24am , Age: ? 1990, 28 Pregnancies: ?? 2, Para 0 Height: ? 62 in Weight: ? 184 lb LMP: ?Unknown GA by US: ? 14w1d ?? ARMIN: 10/18/2018 GA Selected: ??14w0d (From Known E) ARMIN: ?10/19/2018 Referring MD: Onel Allan MD Marzipan Maker: ??Ebonie Benedict RDMS CPT4: ? 75805 BMI: ?33.65 Hist/Ind: ? H/O DVT after knee surgery ?No history of Thrombophilia MEASUREMENTS & AGE ? GROWTH EVALUATION Measurement ??GA ? Range ? Srce %for GA Ratios ----- ---- ------- BPD ??2.7 cm 14w6d ([id number]) Hadl BPD 76% FL/BPD 0.49 HC ?? 9.8 cm 14w4d ([id number]) Hadl HC ??54% FL/AC ??0.17 AC ?? 7.7 cm 14w1d ([id number]) Hadl AC ??61% HC/AC ??1.27 (1.11 - 1.30) FL ?? 1.3 cm 14w0d ([id number]) Hadl FL ??41% CI ? 0.78 HL ?? 1.2 cm 13w0d ([id number]) Td HL ??34% GA for sonogram 14w1d ([id number]) ?? Weight Estimate: based on (HL,BPD,HC,AC,FL) Avg [...] Signature> ??04/20/2018 11:43am Revised Onel Allan MD [facility] ORDERABLES Care Teams Building Carpenter Helper Relationship Specialty Start Date End Date Jean Ng MD [address] [place] [id number] PCP - General 07/22/20
--- OUTSIDE RECORDS SUMMARY | 2024-03-09 17:06 | XMS_ITS | Clinical Summary ---
Author Organization [facility] Address [address] [address] [place] [address] Care Team Providers Care Director Of Sports Medicine Name Role Phone Unavailable Unavailable Unavailable Problems This patient has no known problems. Allergies, Adverse Reactions, Alerts This patient has no known allergies or adverse reactions. Medications Ordered Medication Name Filled Medication Name Start Date Stop Date Current Medication? Ordering Clinician Indication Dosage Frequency Signature (SIG) Comments Components Progesteron e 100 MG CAPS Progesteron e 100 MG CAPS 08-06 00:00: 00 Yes HORTENCIA TATE Commercial Insurance DeaSchedu le:0 DrugClass :*Progest ins DrugSubCl ass:*Prog estins
--- OUTSIDE RECORDS SUMMARY | 2024-03-09 17:06 | XMS_ITS | Clinical Summary ---
Author Organization [facility] Address [address] [place] [address]. [place], [place] [address] [place] [address] Care Team Providers Care Bottom Bleacher Name Role Phone Miracle Cruz Tere MELTON Primary Care Provider [phone] Allergies No known active allergies Medications No [...] Comments Blood Pressure 128/76 03/13/2022 8:15 PM CITRIX SYSTEMS ADMINISTRATOR Pulse 88 03/13/2022 8:15 PM CITRIX SYSTEMS ADMINISTRATOR Temperature 36.5 ??C (97.7 ??F) 03/13/2022 8:15 PM CS T Respiratory Rate 16 03/13/2022 8:15 PM CITRIX SYSTEMS ADMINISTRATOR Oxygen Saturation 97% 03/13/2022 8:15 PM CITRIX SYSTEMS ADMINISTRATOR Inhaled Oxygen Concentration - - Weight 87.1 kg (192 lb) 03/13/2022 3:00 PM CITRIX SYSTEMS ADMINISTRATOR Height 157.5 cm (5' 2 ) 03/13/2022 3:00 PM CITRIX SYSTEMS ADMINISTRATOR Body Mass Index 35.12 03/13/2022 3:00 PM CITRIX SYSTEMS ADMINISTRATOR Plan of Treatment Health Maintenance Due Date [...] patient's age to complete this topic Insurance [facility] Care Teams Bottom Bleacher Relationship Specialty Start Date End Date Miracle Cruz FNP [address] [place] [id number] PCP - General Nurse Practitioner Family 03/13/22
[2024-03-09 19:15] VITALS: BP 124/63; PULSE 84; RESP 16; TEMP 37; O2SAT 99
[2024-03-09] MEDS: ENOXAPARIN 30 MG/0.3 ML SYRINGE SUB-Q (20:35)
[2024-03-10] MEDS: IBUPROFEN 600 MG TABLET PO ×2 (02:19→07:46)
[2024-03-10] MEDS: ACETAMINOPHEN 325 MG TABLET 650 MG PO ×2 (02:19→07:47)
[2024-03-10] MEDS: POLYSACCHARIDE IRON COMPLEX 150 MG CAPSULE PO (07:45)
[2024-03-10] MEDS: SIMETHICONE 80 MG TAB.CHEW PO ×2 (07:46→11:54)
[2024-03-10] MEDS: MULTIVIT/MIN/PREN/FOL AC/IRON TABLET 1 TAB PO (07:46)
[2024-03-10] MEDS: LEVOTHYROXINE SODIUM 50 MCG TABLET PO (07:46)
[2024-03-10] MEDS: DOCUSATE SODIUM 100 MG CAPSULE PO (07:53)
[2024-03-10] MEDS: MEASLES,MUMPS,RUBELLA VACCINE 0.5 ML VIAL SUB-Q (08:01)
[2024-03-10 08:20] VITALS: BP 130/71; PULSE 72; RESP 18; TEMP 37.1; O2SAT 97
--- NOTE | 2024-03-10 08:54 | P.PNOB_ITS ---
OB - PN: Subj Subjective Date/time seen: 03/10/24 08:54 Narrative: Pain OK. Tolerating diet. Wound up staying again last night, but today she would like to go home. OB - PN: Obj Data Labs 03/08/24 04:14 OB - PN A/P Plan day: 3 Comments: A: POD#3, doing well. P: Home to f/u 4 weeks. Exam 2 Narrative: AVSS ABD soft, nontender, fundus firm. Incision c/d/i. EXT nontender
--- NOTE | 2024-03-10 09:30 | PC.NURSE ---
Consulted with mother concerning needs and she shared her ability to independently latch infant optimally without pain now, her nipples were sore but are improving with lanolin and gel cooling pads. Mother is feeding appropriately for growth of infant and understands stimulating to eat if needed. Infant has had appropriate feedings in the last 24 hours meets the outcomes for weight, output, blood sugar and jaundice at this time. Reinforced understanding of milk production, transition of milk, signs of adequate intake, transition of stool, prevention/relief of engorgement, plugged ducts, mastitis, responsive watching for feeding cues, the different methods of stimulating infant to breastfeed 1-3 hours after the start of the last feeding, community resources, and when to call a provider using the resource of the feeding sheet along with the mom and baby guide. Mother voiced understanding of the information shared, is confident to continue effectively her at home, when to call for assistance, denies any additional assistance or education at this time. Reported to the Primary RN.
[2024-03-11 08:39] VITALS: BP 122/73; PULSE 69; RESP 18; TEMP 36.4; O2SAT 100
== END 2024-03-10 12:25 | disposition home or self-care (01) | DRG 788 ==
LOC: ANHLDR 13:35 → ANHOB2 15:49
PROVIDERS: Admitting Provider Obstetrics & Gynecology; Visit Provider Obstetrics & Gynecology
PROC: 10D00Z1 Extraction of Products of Conception, Low, Open Approach (ICD-10-PCS; CPT 59514; principal; 2024-03-07 12:00)
DX: O34.211 Maternal care for low transverse scar from previous cesarean delivery (principal); Z37.0 Single live birth; Z3A.39 39 weeks gestation of pregnancy; O99.284 Endocrine, nutritional and metabolic diseases complicating childbirth; E03.9 Hypothyroidism, unspecified; Z86.718 Personal history of other venous thrombosis and embolism
CPT/HCPCS: 36415; 85025; 86703; 90710; A9270; G0432; J0690; J1100; J1650; J1885; J2274; J2405; J2590; J3480; J7120

== ENCOUNTER 2024-05-01 13:36 | Emergency (ER) | payer BC, SELFPAY ==
[2024-05-01 13:40] VITALS: BP 116/67; PULSE 68; RESP 16; TEMP 36.7; O2SAT 98
[2024-05-01 13:55] LABS: EDUAAPPEAR Cloudy; EDUABILI Negative (Negative); EDUABLOOD Trace (Negative); EDUACOLOR1 Yellow; EDUAGLUCOSE Negative (Negative); EDUAKETONE Negative (Negative); EDUALEUKO 1+ (Negative); EDUANITRATE Negative (Negative); EDUAPH 5.5; EDUAPROTEIN Negative (Negative); EDUASPGRAVITY 1.025; EDUAUROBILI 0.2
--- NOTE | 2024-05-01 13:57 | ED_ITS ---
HPI - Female Genitourinary General Chief complaint: Urogenital-Female Stated complaint: Urinary Problem Time Seen by Provider: 05/01/24 13:45 Source: patient and RN notes reviewed Mode of arrival: ambulatory Limitations: no limitations History of Present Illness HPI Narrative: Patient presents today complaining of 3 day history of urinary frequency, dysuria that has worsened since last night. Denies abdominal pain, back pain, fever, hematuria. Symptoms began after patient had intercourse for the 1st time following having a baby. She took some ibuprofen last night with some mild relief. Related Data Home Medications ?Medication ?Instructions ?Recorded ?Confirmed ?Last Taken ?Type levothyroxine 50 mcg tablet 50 mcg PO DAILY 01/20/24 03/07/24 03/06/24 History vit no.95-ferrous 1 tablet PO DAILY 01/20/24 03/07/24 03/06/24 History fumarate 28 mg-folic acid 800 mcg tablet () Allergies Allergy/AdvReac Type Severity Reaction Status Date / Time venom-wasp Allergy Severe Swelling Verified 05/01/24 13:48 hydrocodone AdvReac Mild Nausea Verified 05/01/24 13:48 Review of Systems Review of Systems: CONSTITUTIONAL: Denies body aches, fever, chills, or sweats. EYES: Denies visual changes, redness, or discharge. ENT: Denies rhinorrhea, congestion, sore throat, or otalgia. CARDIOVASCULAR: Denies chest pain, palpitations, or edema. RESPIRATORY: Denies cough or dyspnea. GASTROINTESTINAL: Denies abdominal pain, nausea, vomiting, or diarrhea. GENITOURINARY: + frequency, dysuria SKIN: Denies rash, itching, or wounds. MUSCULOSKELETAL: Denies back pain, joint pain, or myalgia. NEUROLOGIC: Denies headache, numbness, tingling, or weakness. PSYCH: Denies depression or anxiety. [facility] Past Medical History Medical History History of DVT of lower extremity after knee surgery Hypothyroidism Overweight DVT (deep venous thrombosis) Surgical History Surgical History S/P H/O dilation and curettage S/P ACL repair Family History Family History Grandparent Breast cancer Social History Social History Smoking status: Never smoker Substance use: never Substance use type: does not use Do You Feel Safe in your Home?: Yes Lack of Transportation: No Lack of Food: Never True Current Housing: I Have Housing Concerned About Future Housing: No Difficulty Paying Gas/Electric Bills: No Difficulty Paying for Meds: No Currently Unemployed: No Education: Master's Degree or Higher Difficulty w/ Childcare or Family Care: No Living arrangements: with family Spiritual care concerns: No Comments At time of signature, I have reviewed and agree with nursing past medical, surgical, social and family history unless otherwise noted. Please see nursing chart for further information. There is no relevant family history pertinent to the presenting complaint Exam Narrative: GENERAL: Well-appearing, well-nourished, and in no acute distress. HEAD: Normocephalic, atraumatic. EYES: EOMI. No redness or drainage. Conjunctivae normal. ENT: Mucous membranes pink and moist. NECK: Normal AROM. CHEST: No respiratory distress. Clear to auscultation. HEART: Regular rate and rhythm. No murmur appreciated. ABDOMEN: Soft, nontender, nondistended, normal active bowel sounds. -CVAT EXTREMITIES: Normal range of motion. No edema. SKIN: Warm, dry, no rash. Capillary refill normal. Normal skin turgor. NEURO: No focal deficits. Alert and oriented x3. Gait steady. PSYCH: Normal affect. No signs of depression or anxiety. Course Course Level of Care: Express Care Visit Vital Signs Vital signs: Vital Signs Temperature 98.0 F 05/01/24 13:40 Pulse Rate 68 05/01/24 13:40 Respiratory Rate 16 05/01/24 13:40 Blood Pressure 116/67 05/01/24 13:40 Pulse Oximetry 98 05/01/24 13:40 Oxygen Delivery Room Air 05/01/24 13:40 Temperature 98.0 F 05/01/24 13:40 Pulse Rate 68 05/01/24 13:40 Respiratory Rate 16 05/01/24 13:40 Blood Pressure 116/67 05/01/24 13:40 Pulse Oximetry 98 05/01/24 13:40 Oxygen Delivery Room Air 05/01/24 13:40 Reviewed MDM - Female Genitourinary MDM Narrative Medical decision making narrative: Urinalysis is consistent with developing UTI. Will treat with Keflex. Urine culture pending. Anticipatory guidance given. ED precautions given Differential Diagnosis Differential diagnosis: Likely urinary tract infection, vaginitis, cystitis and other (Pyelonephritis) Lab Data Attestation: I reviewed the patient's lab results. Labs: Lab Results 05/01/24 Range/Units 13:50 POC Urine Color Yellow POC Urine Clarity Cloudy POC Urine pH 5.5 POC Ur Specif Josephine 1.025 POC Urine Protein Negative (Negative) POC Ur Glucose (UA) Negative (Negative) POC Urine Ketones Negative (Negative) POC Urine Blood Trace (Negative) POC Urine Nitrite Negative (Negative) POC Urine Bilirubin Negative (Negative) POC Urine Urobilinogen 0.2 POC U Leukocyte Esteras 1+ (Negative) Critical Care Time Critical Care Time Critical Care Time: No Discharge Plan Discharge Clinical Impression: Urinary tract infection Qualifiers: Urinary tract infection type: acute cystitis Hematuria presence: with hematuria Qualified Code(s): N30.01 - Acute cystitis with hematuria Patient Disposition: Home, Self-Care Condition: Stable Instructions: Antibiotic Form, Urinary Tract Infection in Women (DC) Additional Instructions: Your urine shows infection today. Take Keflex as prescribed until gone. Your urine will be sent of for a culture to identify what type of bacteria is causing your infection. If the culture shows that your medication will not get rid of your infection, you will be notified and a new antibiotic will be called in for you. If your symptoms worsen to include fever, sweats, chills, nausea, vomiting, severe abdominal or back pain, please go to the ER for further evaluation. Patient Language: Nepali Prescriptions: New cephalexin 500 mg capsule 500 mg PO Q6H 7 Days Qty: 28 0RF No Action levothyroxine 50 mcg tablet 50 mcg PO DAILY PNV cmb#95-ferrous fumarate-FA [] 28 mg iron- 800 mcg Tablet 1 tablet PO DAILY ibuprofen 600 mg tablet 600 mg PO Q6H PRN (Reason: cramps) Qty: 30 0RF ferrous sulfate 325 mg (65 mg iron) tablet 325 mg PO DAILY Qty: 30 0RF enoxaparin [Lovenox] 30 mg/0.3 mL syringe 30 mg subcut DAILY Qty: 15 0RF Follow-up/Referrals: UNKNOWN,DOCTOR [Primary Care Provider] - Time of Disposition: 14:00
--- OUTSIDE RECORDS SUMMARY | 2024-05-01 16:10 | XMS_ITS | Clinical Summary ---
Author Organization [facility] [employer] Address [address] [facility] [place] [address] Care Team Providers Care Game Room Attendant Name Role Phone Jean Ng MD Primary Care Provider [phone] Source Comments [facility] [employer],non-owned Affiliates and Associated Physician Practices is amultiple site organization consisting of ambulatory clinics and hospital sitesin [place], [place], [place] and [place]. This disclosure is being madepursuant to the Care Everywhere program and may not contain all information available regarding this patient. Last updated 17.[facility] [employer] Allergies No known active allergies Medications * Be aware that medications may not be up to date on this document. Alwaysverify current medications with the patient. Medication Sig Dispensed Refills Start Date End Date Status Idrurpsr-Oir-Fg-FA ( VITAMIN WITH IRON) tabletIndications:Pre gnancy Take [...] Comments Blood Pressure 126/74 04/20/2018 11:09 AM MANUFACTURING CONTROLS ENGINEER Pulse 71 04/20/2018 11:09 AM MANUFACTURING CONTROLS ENGINEER Temperature - - Respiratory Rate - - Oxygen Saturation - - Inhaled Oxygen Concentration - - Weight 84.8 kg (187 lb) 04/20/2018 11:09 AM MANUFACTURING CONTROLS ENGINEER Height 160 cm (5' 3 ) 04/20/2018 11:09 AM MANUFACTURING CONTROLS ENGINEER Body Mass Index 33.13 04/20/2018 11:09 AM MANUFACTURING CONTROLS ENGINEER Plan of Treatment Health Maintenance Due Date Last Done Comments HIV SCREENING 2004 HEPATITIS C SCREENING 03/20/2007 [...] to complete this topic MENINGOCOCCAL (Group B) VACC INE SHARED DECISION-MAKING Aged Out No longer eligibl e based on patient's age to complete this topic MENINGOCOCCAL GROUPS A/C/Y/W VACCINE Aged Out No longer eligible b ased on patient's age to complete this topic PNEUMOCOCCAL VACCINE Aged Out No long er eligible based on patient's age to complete this topic Care Teams Game Room Attendant Relationship Specialty Start Date End Date Jean Ng MD [address] [place] [address] [phone] PCP - General 07/22/20
--- OUTSIDE RECORDS SUMMARY | 2024-05-01 16:10 | XMS_ITS | Referral Summary ---
Author Organization [facility] 163 [facility] Address [address] dakota [facility] [address] Care Team Providers Care Long Distance Billing Operator Name Role Phone No, Physician Primary Care Provider [phone] Allergies Active Allergy Reactions Criticality Noted Date Comments Other Hives Medium 04/03/2019 Wasp sting Medications norethindrone (MICRONOR) 0.35 mg tablet Take 1 tablet by mouth daily 02/10/2019 Active PNV 39-iron erk-nkcuc-ibc-dh a 30 mg iron-1.2 mg-55 mg-265 mg [...] on file Legal Sex Female 8:41 AM TRAFFIC MAINTENANCE OFFICER Gender Identity Female 06/02/2023 11:56 AM CDT Sexual Orientation Straight 06/02/2023 11 :56 AM CDT Last Filed Vital Signs Vital Sign Reading Time Taken Comments Blood Pressure 120/88 06/09/2023 9:02 AM CDT Pulse 59 06/09/2023 9:02 AM CDT Temperature 36.6 C (97.9 F) 06/09/2023 9:02 AM CDT Respiratory Rate 16 04/03/2019 9:00 AM TRAFFIC MAINTENANCE OFFICER Oxygen Saturation 98% 06/09/2023 9:02 AM CDT [...] PCR, quantitative Blood (06/09/2023 9:20 AM CDT) [facility] HCV RNA result Not Detected [facility] Comment: The quantifiable range of this assay is 15 IU/mL to 100,000,000 IU/mL (1.18 log IU/mL to 8.00 log IU/mL). Testing was performed by the TANISHA 6800 HCV Test ([employer] Testing performed at [facility] Current Interpretive Data was last revised on 2020 Blood 06/09/2023 9:20 AM CDT 06/09/2023 1:47 PM CDT us Yolie Jacobson NP LAB MICROBIOLOGY - GENERA L ORDERABLES Final Result [facility] Department [place] [address] [facility] from Last 3 Months or Most Recently Relevant to Health Maintenance Insurance [employer]CIAL [employer] [place] Care Teams Long Distance Billing Operator Relationship Specialty Start Date End Date No, Physician PCP - General 04/03/19
--- OUTSIDE RECORDS SUMMARY | 2024-05-01 16:10 | XMS_ITS | Patient Health Summary ---
Author Organization [facility] Address [address] [facility] [place] [address] Care Team Providers Care Resource Analyst Name Role Phone Jean Ng MD Primary Care Provider [phone] Note from [facility],non-owned Affiliates and Associated Physician Practices is amultiple site organization consisting of ambulatory clinics and hospital sitesin [place], [place], [place] and [place]. This disclosure is being madepursuant to the Care Everywhere program and may not contain all information available regarding this patient. Last updated 17.[facility] Allergies No known active allergies Medications * Be aware that medications may not be up to date on this document. Alwaysverify current medications with the patient. * Gmxqzaty-Tro-Wo-FA ( VITAMIN WITH IRON) tablet Take 1 [...] Comments Blood Pressure 126/74 04/20/2018 11:09 AM CHILD ADOLESCENT CARE Pulse 71 04/20/2018 11:09 AM CHILD ADOLESCENT CARE Temperature - - Respiratory Rate - - Oxygen Saturation - - Inhaled Oxygen Concentration - - Weight 84.8 kg (187 lb) 04/20/2018 11:09 AM CHILD ADOLESCENT CARE Height 160 cm (5' 3 ) 04/20/2018 11:09 AM CHILD ADOLESCENT CARE Body Mass Index 33.13 04/20/2018 11:09 AM CHILD ADOLESCENT CARE Procedures * SONOGRAM - COMPLETE(Performed 04/20/2018) Performed for Thrombophilia affecting , antepartum (HCC), Encounter for screening for malformation using ultrasound ([facility]), Supervision of high-risk of young multigravida ([facility]), History of DVT (deep vein thrombosis) Results * SONOGRAM - COMPLETE (04/20/2018 9:24 AM CHILD ADOLESCENT CARE) Anatomical Region Laterality Modality Other 04/20/2018 9:24 AM [facility]OLESCENT CARE Narrative 04/20/2018 12:41 PM CHILD ADOLESCENT CARE [facility] PHONE: FAX: Pat. Name: DIANNA FERGUSON Pat. No: [id number] Study Date: 04/20/2018 9:24am , Age: 02 1990, 28 Pregnancies: 2, Para 0 Height: 62 in Weight: 184 lb LMP: Unknown GA by US: 14w1d ARMIN: 10/18/2018 GA Selected: 14w0d (From Known E) ARMIN: 10/19/2018 Referring MD: Onel Allan MD Solid Waste Disposal Manager: Ebonie Benedict RDMS CPT4: 31219 BMI: 33.65 Hist/Ind: H/O DVT after knee surgery No history of Thrombophilia MEASUREMENTS & AGE GROWTH EVALUATION Measurement GA Range Srce %for GA Ratios ----- ---- ------- BPD 2.7 cm 14w6d ([id number]) Hadl BPD 76% FL/BPD 0.49 HC 9.8 cm 14w4d (22k7m-39d7k) Hadl HC 54% FL/AC 0.17 AC 7.7 cm 14w1d (02d7g-40k5e) Hadl AC 61% HC/AC 1.27 (1.11 - 1.30) FL 1.3 cm 14w0d (87o2b-03e7u) Hadl FL 41% CI 0.78 HL 1.2 cm 13w0d (71j1b-53i3q) Td HL 34% GA for sonogram 14w1d (17c7u-41n5c) Weight Estimate: based on (HL,BPD,HC,AC,FL) Avg Weight: 90 gm (77-103gm) Hadlock : 0lbs, 3oz Normal: 93 gm (70-116gm) Hadlock Wt% 41% for 14w0d Heart Rate: 143 bpm Amniotic Fluid Index: 04.3cm (Deepest Pocket) EVAL, PLACENTA Presentation: cephalic Umbilical Cord: 3 Vessels Placenta: anterior Heart Rate: 143 bpm Amniotic Fluid Volume: normal Anatomy!Normal!Abnormal!Suboptimal!Prev. Seen!Comments Cranium ! x ! ! ! ! Mdl (CSP/Thal! ! ! x ! ! Ventricles ! ! ! x ! ! Choroid Plexu! x ! ! ! ! Cerebellum ! ! ! x ! ! Cisterna M. ! ! ! x ! ! Nuchal Fold ! ! ! x ! ! Profile ! ! ! x ! ! Nasal Bone ! ! ! x ! ! Lip ! ! ! x ! ! Spine ! ! ! x ! ! Lungs ! ! ! x ! ! 4 Chamber Hea! ! ! x ! ! LVOT ! ! ! x ! ! RVOT ! ! ! x ! ! 3 Vessel View! ! ! x ! ! Cross-over ! ! ! x ! ! Ductal Arch ! ! ! x ! ! Aortic Arch ! ! ! x ! ! Caval View ! ! ! x ! ! Situs ! ! ! x ! ! Diaphragm ! ! ! x ! ! Stomach ! x ! ! ! ! Bowel ! x ! ! ! ! Kidneys ! x ! ! ! ! Bladder ! x ! ! ! ! 3 Vessel Cord! x ! ! ! ! Cord In! x ! ! ! ! Upper Extremi! x ! ! ! ! Hands ! ! ! x ! ! Lower Extreme! x ! ! ! ! Feet ! ! ! x ! ! External Irma! ! ! x ! ! CLINICAL SUMMARY Study Number: 1 A single fetus is identified in cephalic presentation. The measurements today are consistent with appropriate growth for the ARMIN provided. The ARMIN selected is based on a prior ultrasound. The amniotic fluid volume is normal. The placenta is anterior. No major malformations are seen within the limitations of ultrasound examination. The patient was advised that ultrasound does not allow detection of all structural or chromosomal abnormalities. IMPRESSION: 1. Single, live, IUP at 14w0d 2. Appropriate size 3. normal amniotic fluid volume 4. anterior placenta 5. Anatomy survey is incomplete and limited by early gestational age and positioning RECOMMEND: Follow up ultrasound in 6 weeks to complete anatomic survey. No follow up appointments were made. Thank you for allowing us the opportunity to care for your patient. Fam Jones MD <Electronic Signature> 04/20/2018 11:43am Revised Onel Allan MD [facility] ORDERABLES Care Teams Resource Analyst Relationship Specialty Start Date End Date Jean Ng MD [address] [place] [id number] PCP - General 07/22/20
--- OUTSIDE RECORDS SUMMARY | 2024-05-01 16:10 | XMS_ITS | Clinical Summary ---
Author Organization [facility] 163 [facility] Address [address] dakota [facility] [place] [address] Care Team Providers Care Legal Referee Name Role Phone No, Physician Primary Care Provider [phone] Allergies Active Allergy Reactions Criticality Noted Date Comments Other Hives Medium 04/03/2019 Wasp sting Medications norethindrone (MICRONOR) 0.35 mg tablet Take 1 tablet by mouth daily 02/10/2019 Active PNV 39-iron sbp-nmjmj-dju-dh a 30 mg iron-1.2 mg-55 mg-265 mg [...] on file Legal Sex Female 8:41 AM COASTAL/HARBOR DEFENSE OFFICER Gender Identity Female 06/02/2023 11:56 AM CDT Sexual Orientation Straight 06/02/2023 11 :56 AM CDT Obstetrics History Last Filed Vital Signs Vital Sign Reading Time Taken Comments Blood Pressure 120/88 06/09/2023 9:02 AM CDT Pulse 59 06/09/2023 9:02 AM CDT Temperature 36.6 C (97.9 F) 06/09/2023 9:02 AM CDT Respiratory Rate 16 04/03/2019 9:00 AM COASTAL/HARBOR DEFENSE OFFICER Oxygen Saturation 98% 06/09/2023 9:02 AM [...] PCR, quantitative Blood (06/09/2023 9:20 AM CDT) [facility] HCV RNA result Not Detected [facility] Comment: The quantifiable range of this assay is 15 IU/mL to 100,000,000 IU/mL (1.18 log IU/mL to 8.00 log IU/mL). Testing was performed by the TANISHA 6800 HCV Test ([employer] Testing performed at [facility] Current Interpretive Data was last revised on 2020 Blood 06/09/2023 9:20 AM CDT 06/09/2023 1:47 PM CDT us Yolie Jacobson NP LAB MICROBIOLOGY - GENERA L ORDERABLES Final Result [facility] [address] [facility] Department [place] [address] [facility] from Last 3 Months or Most Recently Relevant to Health Maintenance Insurance [employer] [place] Care Teams Legal Referee Relationship Specialty Start Date End Date No, Physician PCP - General 04/03/19
--- OUTSIDE RECORDS SUMMARY | 2024-05-01 16:10 | XMS_ITS | Referral Summary ---
Author Organization [facility] [employer] Address [address] [place] [address] Care Team Providers Care Bar Captain Name Role Phone Jean Ng MD Primary Care Provider [phone] [facility] [employer],non-owned Affiliates and Associated Physician Practices is amultiple site organization consisting of ambulatory clinics and hospital sitesin [place], [place], [place] and [place]. This disclosure is being madepursuant to the Care Everywhere program and may not contain all information available regarding this patient. Last updated 17.[facility] [employer] Allergies No known active allergies Medications * Be aware that medications may not be up to date on this document. Alwaysverify current medications with the patient. Medication Sig Dispensed Refills Start Date End Date Status Ffuoruke-Ziq-Qb-FA ( VITAMIN WITH IRON) tabletIndications:Pre gnancy Take [...] Comments Blood Pressure 126/74 04/20/2018 11:09 AM MVA REACTOR OPERATOR HEAD Pulse 71 04/20/2018 11:09 AM MVA REACTOR OPERATOR HEAD Temperature - - Respiratory Rate - - Oxygen Saturation - - Inhaled Oxygen Concentration - - Weight 84.8 kg (187 lb) 04/20/2018 11:09 AM MVA REACTOR OPERATOR HEAD Height 160 cm (5' 3 ) 04/20/2018 11:09 AM MVA REACTOR OPERATOR HEAD Body Mass Index 33.13 04/20/2018 11:09 AM MVA REACTOR OPERATOR HEAD Plan of Treatment Not on file Care Teams Bar Captain Relationship Specialty Start Date End Date Jean Ng MD [facility] [place] [address] [place] [id number] PCP - General 07/22/20
--- OUTSIDE RECORDS SUMMARY | 2024-05-01 16:10 | XMS_ITS | Clinical Summary ---
Author Organization [facility] Address [address] [place] [address] Care Team Providers Care Senior Operations Analyst Name Role Phone Miracle Cruz Primary Care Provider Allergies No known active allergies Medications No [...] Comments Blood Pressure 128/76 03/13/2022 8:15 PM MAINTENANCE GROUNDMAN Pulse 88 03/13/2022 8:15 PM MAINTENANCE GROUNDMAN Temperature 36.5 C (97.7 F) 03/13/2022 8:15 PM MAINTENANCE GROUNDMAN Respiratory Rate 16 03/13/2022 8:15 PM MAINTENANCE GROUNDMAN Oxygen Saturation 97% 03/13/2022 8:15 PM MAINTENANCE GROUNDMAN Inhaled Oxygen Concentration - - Weight 87.1 kg (192 lb) 03/13/2022 3:00 PM MAINTENANCE GROUNDMAN Height 157.5 cm (5' 2 ) 03/13/2022 3:00 PM MAINTENANCE GROUNDMAN Body Mass Index 35.12 03/13/2022 3:00 PM MAINTENANCE GROUNDMAN Plan of Treatment Health Maintenance Due Date [...] patient's age to complete this topic Meningococcal B Vaccine Aged Out No l onger eligible based on patient's age to complete [...] patient's age to complete this topic Insurance [facility] Care Teams Senior Operations Analyst Relationship Specialty Start Date End Date Miracle Cruz FNP [address] [place] [id number] PCP - General Nurse Practitioner Family 03/13/22
== END 2024-05-01 14:04 | disposition home or self-care (01) ==
PROVIDERS: Emergency Provider Nurse Practitioner
DX: N30.01 Acute cystitis with hematuria (principal); E03.9 Hypothyroidism, unspecified; Z86.718 Personal history of other venous thrombosis and embolism
CPT/HCPCS: 81003; 87086; 99213; G0463

== ENCOUNTER 2024-07-09 13:34 | Emergency (ER) | payer BC, SELFPAY ==
--- OUTSIDE RECORDS SUMMARY | 2024-07-09 13:36 | XMS_ITS | Clinical Summary ---
Author Organization [facility] [address] [facility] Address [address] [place] [facility] [address] Care Team Providers Care Lead Data Architect Name Role Phone No, Physician Primary Care Provider [phone] Allergies Active Allergy Reactions Criticality Noted Date Comments Other Hives Medium 04/03/2019 Wasp sting Medications norethindrone (MICRONOR) 0.35 mg tablet Take 1 tablet by mouth daily 02/10/2019 Active PNV 39-iron tvh-qqjje-xsl-dh a 30 mg iron-1.2 mg-55 mg-265 mg [...] on file Legal Sex Female 8:41 AM SHAKE SPLITTER Gender Identity Female 06/02/2023 11:56 AM CDT Sexual Orientation Straight 06/02/2023 11 :56 AM CDT Obstetrics History Last Filed Vital Signs Vital Sign Reading Time Taken Comments Blood Pressure 120/88 06/09/2023 9:02 AM CDT Pulse 59 06/09/2023 9:02 AM CDT Temperature 36.6 C (97.9 F) 06/09/2023 9:02 AM CDT Respiratory Rate 16 04/03/2019 9:00 AM SHAKE SPLITTER Oxygen Saturation 98% 06/09/2023 9:02 AM CDT Inhaled Oxygen Concentration - - Weight 93.2 kg (205 lb 8 oz) 06/09/2023 9:02 AM CDT Height 160 cm (5' 2.99) 06/09/2023 9:02 AM CDT Body Mass Index 36.41 06/09/2023 9:02 AM CDT Plan of Treatment Health Maintenance Due Date Last Done Comments Cervical Cancer Screening 1989 Varicella Vaccines (1 of 2 - 13+ 2-dose series) 2002 Hepatitis B Screening 2007 Regular Well Visit/Exam 18-64 2007 Depression Screening 06/08/2024 06/09/2023 Influenza Vaccine (Season Ended) 2024 10/24/2018 DTaP/Tdap/Td Vaccine (3 - Td or Tdap) [...] PCR, quantitative Blood (06/09/2023 9:20 AM CDT) [facility] HCV RNA result Not Detected [facility] Comment: The quantifiable range of this assay is 15 IU/mL to 100,000,000 IU/mL (1.18 log IU/mL to 8.00 log IU/mL). Testing was performed by the TANISHA 6800 HCV Test ([employer] Testing performed at [facility] Current Interpretive Data was last revised on 2020 Blood 06/09/2023 9:20 AM CDT 06/09/2023 1:47 PM CDT us Yolie Jacobson NP LAB MICROBIOLOGY - GENERA L ORDERABLES Final Result [facility] One [facility] Department [place] [address] [facility] from Last 3 Months or Most Recently Relevant to Health Maintenance Insurance [employer]CIAL [employer] [place] Care Teams Lead Data Architect Relationship Specialty Start Date End Date No, Physician PCP - General 04/03/19
--- OUTSIDE RECORDS SUMMARY | 2024-07-09 13:36 | XMS_ITS | Referral Summary ---
Author Organization [facility] 163 [facility] Address [address] d[place]ota [facility] [place] [place] [address] Care Team Providers Care Business Professor Name Role Phone No, Physician Primary Care Provider [phone] Allergies Active Allergy Reactions Criticality Noted Date Comments Other Hives Medium 04/03/2019 Wasp sting Medications norethindrone (MICRONOR) 0.35 mg tablet Take 1 tablet by mouth daily 02/10/2019 Active PNV 39-iron jrz-pcump-uzj-dh a 30 mg iron-1.2 mg-55 mg-265 mg [...] on file Legal Sex Female 8:41 AM WELDER PLASTIC Gender Identity Female 06/02/2023 11:56 AM CDT Sexual Orientation Straight 06/02/2023 11 :56 AM CDT Last Filed Vital Signs Vital Sign Reading Time Taken Comments Blood Pressure 120/88 06/09/2023 9:02 AM CDT Pulse 59 06/09/2023 9:02 AM CDT Temperature 36.6 C (97.9 F) 06/09/2023 9:02 AM CDT Respiratory Rate 16 04/03/2019 9:00 AM WELDER PLASTIC Oxygen Saturation 98% 06/09/2023 9:02 AM CDT [...] PCR, quantitative Blood (06/09/2023 9:20 AM CDT) [facility] HCV RNA result Not Detected [facility] Comment: The quantifiable range of this assay is 15 IU/mL to 100,000,000 IU/mL (1.18 log IU/mL to 8.00 log IU/mL). Testing was performed by the TANISHA 6800 HCV Test ([employer] Testing performed at [facility] Current Interpretive Data was last revised on 2020 Blood 06/09/2023 9:20 AM CDT 06/09/2023 1:47 PM CDT us Yolie Jacobson NP LAB MICROBIOLOGY - GENERA L ORDERABLES Final Result [facility] [address] [facility] Department [place] [address] [facility] from Last 3 Months or Most Recently Relevant to Health Maintenance Insurance COMMERCIAL [employer]IC [place] Care Teams Business Professor Relationship Specialty Start Date End Date No, Physician PCP - General 04/03/19
--- OUTSIDE RECORDS SUMMARY | 2024-07-09 13:36 | XMS_ITS | Clinical Summary ---
Author Organization [facility] [employer] Address [address] [facility] [place] [address] Care Team Providers Care Manager Data Warehousing Name Role Phone Jean Ng MD Primary Care Provider Source Comments [facility],non-owned Affiliates and Associated Physician Practices is amultiple site organization consisting of ambulatory clinics and hospital sitesin [place], [place], [place] and [place]. This disclosure is being madepursuant to the Care Everywhere program and may not contain all information available regarding this patient. Last updated 17.[facility] Allergies No known active allergies Medications * Be aware that medications may not be up to date on this document. Alwaysverify current medications with the patient. Wywpfesp-Fgn-Wb -FA ( VITAMIN WITH IRON) tabletIndicatio ns: Take 1 tablet by mouth once daily Reasons: Active Active Problems Problem Noted Date Diagnosed Date Supervision of high-risk of quique vuaghn 04/19/2018 Encounter for scre ening for malformation [...] Assigned at Female 08/05/2021 11:28 AM CDT Legal Sex Female 2:37 PM CDT Gender Identity Female 08/05/2021 11:28 AM CDT Sexual Orientation Straight 08/05/2021 11 :28 AM CDT Last Filed Vital Signs Vital Sign Reading Time Taken Comments Blood Pressure 126/74 04/20/2018 11:09 AM ELECTRICAL ENGINEERING DIRECTOR Pulse 71 04/20/2018 11:09 AM ELECTRICAL ENGINEERING DIRECTOR Temperature - - Respiratory Rate - - Oxygen Saturation - - Inhaled Oxygen Concentration - - Weight 84.8 kg (187 lb) 04/20/2018 11:09 AM ELECTRICAL ENGINEERING DIRECTOR Height 160 cm (5' 3) 04/20/2018 11:09 AM ELECTRICAL ENGINEERING DIRECTOR Body Mass Index 33.13 04/20/2018 11:09 AM ELECTRICAL ENGINEERING DIRECTOR Plan of Treatment Health Maintenance Due Date Last Done Comments HIV SCREENING 2004 HEPATITIS C SCREENING 03/20/2007 DTAP/TDAP/TD VACCINES (1 - Tdap) 2008 HEPATITIS B VACCINE (1 of 3 - 19+ 3-dose series) 2008 COVID-19 VACCINE ( - 2023-2 5 season) 2023 DEPRESSION SCREENING 02/16/2024 INFLUENZA VACCINE (Season Ended) 2024 ZOSTER VACCINE (1 of 2) 2039 HIB [...] patient's age to complete this topic Insurance [employer] Care Teams Manager Data Warehousing Relationship Specialty Start Date End Date Jean Ng MD [address] [place] [address] [place] [address] [id number] PCP - General 07/22/20
[2024-07-09 13:58] VITALS: BP 126/87; PULSE 85; RESP 16; TEMP 36.9; O2SAT 99
[2024-07-09 14:28] LABS: EDSTREPNEGPOS1 Negative (Negative)
[2024-07-09 14:46] LABS: EDSTREPNEGPOS1 Negative (Negative)
[2024-07-09 14:55] LABS: EDSTREPNEGPOS1 Negative (Negative)
[2024-07-09 15:12] LABS: EDMONONEGPOS Negative (Negative)
--- NOTE | 2024-07-09 16:04 | ED_ITS ---
HPI - URI/Sore Throat General Chief Complaint: Upper Respiratory Infection Stated Complaint: Sore Throat Time Seen by Provider: 07/09/24 14:35 Source: patient and RN notes reviewed Mode of arrival: ambulatory Limitations: no limitations History of Present Illness HPI Narrative: 34-year-old female presents Express Care complaining of sore throat for 2 days. Patient denies any other upper respiratory symptoms, cough, fevers, body aches, chills, or any other symptoms. Patient has been taking Tylenol for pain and discomfort. Patient is currently was unsure what else she can take. Related Data Home Medications ?Medication ?Instructions ?Recorded ?Confirmed ?Last Taken ?Type No Home Medications 07/09/24 07/09/24 Unknown History Allergies Allergy/AdvReac Type Severity Reaction Status Date / Time venom-wasp Allergy Severe Swelling Verified 07/09/24 14:00 hydrocodone AdvReac Mild Nausea Verified 07/09/24 14:00 Review of Systems Review of Systems: CONSTITUTIONAL: Denies fever, chills, body aches, or sweats. EYES: Denies visual changes, redness, or discharge. ENT: Negative for rhinorrhea, congestion, difficulty swallowing, or otalgia. Positive for sore throat. CARDIOVASCULAR: Denies chest pain, palpitations, or edema. RESPIRATORY: Negative for cough and dyspnea. GASTROINTESTINAL: Denies abdominal pain, nausea, vomiting, or diarrhea. GENITOURINARY: Denies dysuria or hematuria. SKIN: Denies rash or itching. MUSCULOSKELETAL: Denies back pain, joint pain, or myalgia. NEUROLOGIC: Denies headache, numbness, or weakness. PSYCHIATRIC: Denies anxiety or depression. All other systems reviewed are negative, except as documented in HPI. [facility] Past Medical History Medical History History of DVT of lower extremity after knee surgery Hypothyroidism Overweight DVT (deep venous thrombosis) Surgical History Surgical History S/P H/O dilation and curettage S/P ACL repair Family History Family History Grandparent Breast cancer Social History Social History (Reviewed 07/09/24 @ 16:05 by JAIME Lee Smoking status: Never smoker Substance use: never Substance use type: does not use Do You Feel Safe in your Home?: Yes Lack of Transportation: No Lack of Food: Never True Current Housing: I Have Housing Concerned About Future Housing: No Difficulty Paying Gas/Electric Bills: No Difficulty Paying for Meds: No Currently Unemployed: No Education: Master's Degree or Higher Difficulty w/ Childcare or Family Care: No Living arrangements: with family Spiritual care concerns: No Comments At the time of my signature, I reviewed and agree with the nursing past medical, surgical, social, and family history. There is no relevant family history pertinent to the patient complaint. Exam Narrative: GENERAL: This is a well-nourished, well-developed adult, in no apparent distress. They are non ill-appearing, nontoxic appearing. HEAD: normocephalic, atraumatic. EYES: Sclera clear/white. Vision is grossly intact. Conjunctiva normal bilaterally. Extraocular movements intact. EARS: External ears normal, auditory canals clear and without drainage, TMs without erythema or perforation. Hearing grossly intact. NOSE: External nose normal with no obvious nasal discharge, nasal turbinates without redness or swelling, no rhinorrhea. THROAT: Mucous membranes moist, posterior pharynx erythematous without exudate. Uvula is midline. NECK: Neck supple, tender with mild cervical lymphadenopathy, no masses or thyromegaly. CARDIOVASCULAR: Regular rate and rhythm without murmurs, gallops, or rubs. RESPIRATORY: Clear to auscultation. Breath sounds equal bilaterally. No wheezes, rales, or rhonchi. SKIN: warm, Dry, intact with no suspicious lesions or rash, good texture and turgor. NEURO: awake, alert, and oriented to person, place and time. There were no obvious focal neurologic abnormalities. EXTREMITIES: No joint tenderness, effusion, or edema noted. BACK: Nontender without deformity. Course Course Emergency Course: Portions of this record may have been created with voice recognition software Level of Care: Express Care Visit Vital Signs Vital signs: Vital Signs Temperature 98.4 F 07/09/24 13:58 Pulse Rate 85 07/09/24 13:58 Respiratory Rate 16 07/09/24 13:58 Blood Pressure 126/87 07/09/24 13:58 Pulse Oximetry 99 07/09/24 13:58 Oxygen Delivery Room Air 07/09/24 13:58 Temperature 98.4 F 07/09/24 13:58 Pulse Rate 85 07/09/24 13:58 Respiratory Rate 16 07/09/24 13:58 Blood Pressure 126/87 07/09/24 13:58 Pulse Oximetry 99 07/09/24 13:58 Oxygen Delivery Room Air 07/09/24 13:58 MDM - URI/Sore Throat MDM Narrative Medical decision making narrative: Rapid strep and rapid mono are negative. Throat culture is pending. Symptoms likely viral etiology. Discussed physical exam findings. Advised supportive measures and signs/symptoms to go to the ER. Pt is appropriate for outpt treatment and f/u. Differential Diagnosis Differential diagnosis: Likely upper respiratory infection, viral infection and pharyngitis Lab Data Attestation: I reviewed the patient's lab results. Labs: Lab Results 07/09/24 07/09/24 07/09/24 Range/Units 14:27 14:45 14:53 POC Monoscreen (Negative) POC Grp A Strep Screen Negative Negative Negative (Negative) 07/09/24 Range/Units 15:10 POC Monoscreen Negative (Negative) POC Grp A Strep Screen (Negative) Discharge Plan Discharge Clinical Impression: Viral pharyngitis Patient Disposition: Home Condition: Stable Instructions: Pharyngitis (ED) Additional Instructions: Your rapid strep swab and mono are negative today at [facility]. You will be notified in a few days if the culture comes back positive for strep, and appropriate antibiotics will be called in for you at that time. Your symptoms are likely due to a viral illness, which is not treated with antibiotics. You may try salt water gargle rinses or peppermint tea to help severe throat pain. Viral symptoms can be present for up to 10-14 days. Take Tylenol or ibuprofen for fever or pain. Rest and stay hydrated. Follow up with your PCP in 3-5 days if symptoms are not improving. Go to the ER immediately if you develop difficulty breathing or swallowing Patient Language: Frisian Prescriptions: No Action No Home Medications Follow-up/Referrals: UNKNOWN,DOCTOR [Primary Care Provider] - Time of Disposition: 15:17
== END 2024-07-09 15:19 | disposition home or self-care (01) ==
DX: B34.9 Viral infection, unspecified (principal); J02.0 Streptococcal pharyngitis; E03.9 Hypothyroidism, unspecified; Z86.718 Personal history of other venous thrombosis and embolism
CPT/HCPCS: 36416; 86308; 87081; 87880; 99212; 99213; G0463

== ENCOUNTER 2024-08-14 16:44 | Emergency (ER) | payer BC, SELFPAY ==
--- OUTSIDE RECORDS SUMMARY | 2024-08-14 16:46 | XMS_ITS | Clinical Summary ---
Author Organization [facility] [employer] Address [address] [place] [address] Care Team Providers Care Power Line Installer And Repairer Name Role Phone Jean Ng MD Primary Care Provider [phone] Source Comments [facility] [employer],non-owned Affiliates and Associated Physician Practices is amultiple site organization consisting of ambulatory clinics and hospital sitesin [place], [place], [place] and [place]. This disclosure is being madepursuant to the Care Everywhere program and may not contain all information available regarding this patient. Last updated 17.[facility] [employer] Allergies No known active allergies Medications * Be aware that medications may not be up to date on this document. Alwaysverify current medications with the patient. Exoinfot-Dgc-Jm -FA ( VITAMIN WITH IRON) tabletIndicatio ns: [...] Comments Blood Pressure 126/74 04/20/2018 11:09 AM LINE MAINTENANCE SUPERVISOR Pulse 71 04/20/2018 11:09 AM LINE MAINTENANCE SUPERVISOR Temperature - - Respiratory Rate - - Oxygen Saturation - - Inhaled Oxygen Concentration - - Weight 84.8 kg (187 lb) 04/20/2018 11:09 AM LINE MAINTENANCE SUPERVISOR Height 160 cm (5' 3) 04/20/2018 11:09 AM LINE MAINTENANCE SUPERVISOR Body Mass Index 33.13 04/20/2018 11:09 AM LINE MAINTENANCE SUPERVISOR Plan of Treatment Health Maintenance Due Date [...] this topic Insurance [employer] Care Teams Power Line Installer And Repairer Relationship Specialty Start Date End Date Jaen Ng MD [address] [place] [address] [place] [address] [id number] PCP - General 07/22/20
--- OUTSIDE RECORDS SUMMARY | 2024-08-14 16:46 | XMS_ITS | Clinical Summary ---
Author Organization [facility] [address] [facility] Address [address] [place] [address] Care Team Providers Care Architect Manager Name Role Phone No, Physician Primary Care Provider [phone] Allergies Active Allergy Reactions Criticality Noted Date Comments Other Hives Medium 04/03/2019 Wasp sting Medications norethindrone (MICRONOR) 0.35 mg tablet Take 1 tablet by mouth daily 02/10/2019 Active PNV 39-iron [id number]-dh a 30 mg iron-1.2 mg-55 mg-265 mg [...] file Legal Sex Female 8:41 AM TEST DESKMAN Gender Identity Female 06/02/2023 11:56 AM CDT Sexual Orientation Straight 06/02/2023 11 :56 AM CDT Obstetrics History Last Filed Vital Signs Vital Sign Reading Time Taken Comments Blood Pressure 120/88 06/09/2023 9:02 AM CDT Pulse 59 06/09/2023 9:02 AM CDT Temperature 36.6 C (97.9 F) 06/09/2023 9:02 AM CDT Respiratory Rate 16 04/03/2019 9:00 AM TEST DESKMAN Oxygen Saturation 98% 06/09/2023 9:02 AM CDT [...] PCR, quantitative Blood (06/09/2023 9:20 AM CDT) [facility] HCV RNA result Not Detected [facility] Comment: The quantifiable range of this assay is 15 IU/mL to 100,000,000 IU/mL (1.18 log IU/mL to 8.00 log IU/mL). Testing was performed by the TANISHA 6800 HCV Test ([employer] Testing performed at [facility] Current Interpretive Data was last revised on 2020 Blood 06/09/2023 9:20 AM CDT 06/09/2023 1:47 PM CDT us Yolie Jacobson NP LAB MICROBIOLOGY - GENERA L ORDERABLES Final Result [facility] Department [place] [address] [facility] from Last 3 Months or Most Recently Relevant to Health Maintenance Insurance [employer] [place] Care Teams Architect Manager Relationship Specialty Start Date End Date No, Physician PCP - General 04/03/19
--- OUTSIDE RECORDS SUMMARY | 2024-08-14 16:46 | XMS_ITS | Referral Summary ---
Author Organization [facility] 163 [facility] Address [address] [place] [address] Care Team Providers Care Director Of Community Services Name Role Phone No, Physician Primary Care Provider [phone] Allergies Active Allergy Reactions Criticality Noted Date Comments Other Hives Medium 04/03/2019 Wasp sting Medications norethindrone (MICRONOR) 0.35 mg tablet Take 1 tablet by mouth daily 02/10/2019 Active PNV 39-iron uhv-[id number]-adv-dh a 30 mg iron-1.2 mg-55 mg-265 mg [...] on file Legal Sex Female 8:41 AM INDUSTRIAL TRAINER Gender Identity Female 06/02/2023 11:56 AM CDT Sexual Orientation Straight 06/02/2023 11 :56 AM CDT Last Filed Vital Signs Vital Sign Reading Time Taken Comments Blood Pressure 120/88 06/09/2023 9:02 AM CDT Pulse 59 06/09/2023 9:02 AM CDT Temperature 36.6 C (97.9 F) 06/09/2023 9:02 AM CDT Respiratory Rate 16 04/03/2019 9:00 AM INDUSTRIAL TRAINER Oxygen Saturation 98% 06/09/2023 9:02 AM CDT [...] PCR, quantitative Blood (06/09/2023 9:20 AM CDT) [facility] HCV RNA result Not Detected [facility] Comment: The quantifiable range of this assay is 15 IU/mL to 100,000,000 IU/mL (1.18 log IU/mL to 8.00 log IU/mL). Testing was performed by the TANISHA 6800 HCV Test ([employer] Testing performed at [facility] Current Interpretive Data was last revised on 2020 Blood 06/09/2023 9:20 AM CDT 06/09/2023 1:47 PM CDT us Yolie Jacobson NP LAB MICROBIOLOGY - GENERA L ORDERABLES Final Result [facility] One [facility] Department [place] [address] [facility] from Last 3 Months or Most Recently Relevant to Health Maintenance Insurance [employer] [place] Care Teams Director Of Community Services Relationship Specialty Start Date End Date No, Physician PCP - General 04/03/19
--- OUTSIDE RECORDS SUMMARY | 2024-08-14 16:46 | XMS_ITS | Clinical Summary ---
Author Organization [facility] Address [address] [place] [id number] Care Team Providers Care Search Engine Optimizer Name Role Phone Miracle Cruz Primary Care [...] Comments Blood Pressure 128/76 03/13/2022 8:15 PM POLITICAL SCIENCE PROFESSOR Pulse 88 03/13/2022 8:15 PM POLITICAL SCIENCE PROFESSOR Temperature 36.5 C (97.7 F) 03/13/2022 8:15 PM POLITICAL SCIENCE PROFESSOR Respiratory Rate 16 03/13/2022 8:15 PM POLITICAL SCIENCE PROFESSOR Oxygen Saturation 97% 03/13/2022 8:15 PM POLITICAL SCIENCE PROFESSOR Inhaled Oxygen Concentration - - Weight 87.1 kg (192 lb) 03/13/2022 3:00 PM POLITICAL SCIENCE PROFESSOR Height 157.5 cm (5' 2) 03/13/2022 3:00 PM POLITICAL SCIENCE PROFESSOR Body Mass Index 35.12 03/13/2022 3:00 PM POLITICAL SCIENCE PROFESSOR Plan of Treatment Health Maintenance Due Date [...] Screening wi th HPV 2019 COVID-19 Vaccine (1 - 2023-2 5 season) 2023 DTaP, Tdap and Td Vaccines ( 3 [...] 5 Years) and At-Risk Patients (6 to 49 Years) Aged Out No longer eligible b ased on patient's age to complete this topic RSV Immunizations Under 20 Months Aged Out No longer eligible b ased on patient's age to complete this topic Insurance [facility] Care Teams Search Engine Optimizer Relationship Specialty Start Date End Date Miracle Cruz FNP [address] [place] [id number] PCP - General Nurse Practitioner Family 03/13/22
[2024-08-14 16:48] VITALS: BP 127/69; PULSE 67; RESP 16; TEMP 37.1; O2SAT 100
--- NOTE | 2024-08-14 17:02 | ED_ITS ---
HPI - General Adult General Chief complaint: Unspecified Stated complaint: Fatigue Time Seen by Provider: 08/14/24 17:03 Mode of arrival: ambulatory Limitations: no limitations History of Present Illness HPI narrative: 34-year-old female presents with concern for fatigue for about 3 days. Reports this morning she had some nausea and abdominal discomfort. She reports mild sore throat. She reports she finished antibiotics for strep throat about 3 weeks ago. She reports she had a tick bite last week. She denies any rash, red circles. She denies fever, aches, chills, sweats. She is breast-feeding a 5-month-old infant. complaint: Fatigue Related Data Allergies Allergy/AdvReac Type Severity Reaction Status Date / Time venom-wasp Allergy Severe Swelling Verified 07/09/24 14:00 hydrocodone AdvReac Mild Nausea Verified 07/09/24 14:00 Review of Systems Review of Systems: CONSTITUTIONAL: Denies malaise, chills, sweats, or fever. Reports considerable fatigue EYES: Denies visual changes, redness, or discharge. ENT: Denies rhinorrhea, congestion, sinus pain, otalgia. Reports sore throat. CARDIOVASCULAR: Denies chest pain, palpitations, or edema. RESPIRATORY: Denies cough or dyspnea. GASTROINTESTINAL: Reports abdominal discomfort, nausea. Denies vomiting, diarrhea, bloody, or mucous stools. GENITOURINARY: Denies dysuria or hematuria. SKIN: Denies rash or itching. MUSCULOSKELETAL: Denies back pain, joint pain, or myalgia. NEUROLOGIC: Denies numbness, weakness, or headache. PSYCHIATRIC: Denies anxiety or depression. 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 knee surgery Hypothyroidism Overweight DVT (deep venous thrombosis) Surgical History Surgical History S/P H/O dilation and curettage S/P ACL repair Family History Family History Grandparent Breast cancer Social History Social History Smoking status: Never smoker Substance use: never Substance use type: does not use Do You Feel Safe in your Home?: Yes Lack of Transportation: No Lack of Food: Never True Current Housing: I Have Housing Concerned About Future Housing: No Difficulty Paying Gas/Electric Bills: No Difficulty Paying for Meds: No Currently Unemployed: No Education: Master's Degree or Higher Difficulty w/ Childcare or Family Care: No Living arrangements: with family Spiritual care concerns: No Comments At time of signature, agree with nursing past medical, surgical, social and family history. There is no relevant family history pertinent to the presenting complaint Exam Narrative: GENERAL: Well-appearing, well-nourished, and in no acute distress. HEAD: Normocephalic, atraumatic. EYES: PERRLA, sclera clear, and EOMI. No nystagmus. ENT: Nares clear, turbinates pink, no rhinorrhea or epistaxis. Mucous membranes moist. TM pearly pandya with sharp light reflex bilaterally; no tragal tenderness. Oropharynx without erythema or lesions. Tonsils not enlarged and without exudate. NECK: Supple. No lymphadenopathy. CHEST: No respiratory distress. Clear to auscultation. No bony deformities, no asymmetry. Speaks in full sentences. HEART: Regular rate and rhythm. No murmur heard. Normal peripheral pulses. ABDOMEN: Soft, nontender, nondistended, normal active bowel sounds, no palpable masses. EXTREMITIES: Normal range of motion. No edema. Normal strength and sensation. SKIN: Warm, dry, no visible rash. NEURO: Alert and oriented x3. No focal deficits PSYCH: Normal mood and affect Course Course Emergency Course: Repaired decision making, it was decided to prophylactically treat the patient based on her abdominal pain, nausea, fatigue Patient is aware of diagnosis, understands and agrees to treatment plan. Antic ipatory guidance given. Patient agrees to follow-up as directed and is aware of reasons to seek care at the emergency department. Portions of this record may have been created with voice recognition software Level of Care: Express Care Visit Vital Signs Vital signs: Vital Signs Temperature 98.7 F 08/14/24 16:48 Pulse Rate 67 08/14/24 16:48 Respiratory Rate 16 08/14/24 16:48 Blood Pressure 127/69 08/14/24 16:48 Pulse Oximetry 100 08/14/24 16:48 Oxygen Delivery Room Air 08/14/24 16:48 Temperature 98.7 F 08/14/24 16:48 Pulse Rate 67 08/14/24 16:48 Respiratory Rate 16 08/14/24 16:48 Blood Pressure 127/69 08/14/24 16:48 Pulse Oximetry 100 08/14/24 16:48 Oxygen Delivery Room Air 08/14/24 16:48 Reviewed. Medical Decision Making MDM Narrative Medical decision making narrative: The patient was evaluated by myself in the [facility] care. History is obtained from patient who is an independent historian and physical exam was performed.? Available medical records were reviewed at this time. ? Exam findings show no acute concerns or changes; patient is non-toxic appearing and is in no distress. Patient is appropriate for outpatient treatment and follow-up. ? I have evaluated and discussed social determinants of health with the patient that could potentially impact subsequent diagnosis and treatment plans. ? Differential diagnosis and treatment plan were discussed with the patient. Patient agrees with discussion and after shared medical decision making agrees with plan of care. All questions were answered to the patient's satisfaction. Vital Signs Vital Signs: Vital Signs Temperature 98.7 F 08/14/24 16:48 Pulse Rate 67 08/14/24 16:48 Respiratory Rate 16 08/14/24 16:48 Blood Pressure 127/69 08/14/24 16:48 Pulse Oximetry 100 08/14/24 16:48 Oxygen Delivery Room Air 08/14/24 16:48 Temperature 98.7 F 08/14/24 16:48 Pulse Rate 67 08/14/24 16:48 Respiratory Rate 16 08/14/24 16:48 Blood Pressure 127/69 08/14/24 16:48 Pulse Oximetry 100 08/14/24 16:48 Oxygen Delivery Room Air 08/14/24 16:48 Critical Care Time Critical Care Time Critical Care Time: No Discharge Plan Discharge Clinical Impression: Tick bite, Fatigue Patient Disposition: Home Condition: Stable Instructions: Antibiotic Form, Tick Bite (ED) Additional Instructions: 1) Please follow-up with your primary care doctor in the next 1-2 days. 2) If you have any worsening of symptoms or any other urgent concerns please go to the ER. 3) Please take medications as prescribed and continue taking your home medications as usual. 4) Please read and follow information included in discharge instructions. Patient Language: Danish Prescriptions: New doxycycline monohydrate 100 mg tablet 100 mg PO BID 7 Days Qty: 14 0RF Follow-up/Referrals: UNKNOWN,DOCTOR [Primary Care Provider] - Time of Disposition: 17:30
[2024-08-14 17:26] LABS: EDSTREPNEGPOS1 Negative (Negative)
== END 2024-08-14 17:34 | disposition home or self-care (01) ==
PROVIDERS: Emergency Provider Nurse Practitioner
DX: T14.8XXA Other injury of unspecified body region, initial encounter (principal); E03.9 Hypothyroidism, unspecified; Z86.718 Personal history of other venous thrombosis and embolism; W57.XXXA Bitten or stung by nonvenomous insect and other nonvenomous arthropods, initial encounter
CPT/HCPCS: 87081; 87880; 99213; G0463

== ENCOUNTER 2024-11-11 16:54 | Emergency (ER) | payer BC, SELFPAY ==
--- OUTSIDE RECORDS SUMMARY | 2024-11-11 16:55 | XMS_ITS | Clinical Summary ---
Author Organization [facility] Address [address] [place] [address] Care Team Providers Care Speech Language Pathologist Prn Name Role Phone Jean Ng MD Primary Care Provider Source Comments [facility],non-owned Affiliates and Associated Physician Practices is amultiple site organization consisting of ambulatory clinics and hospital sitesin [place], [place], [place] and [place]. This disclosure is being madepursuant to the Care Everywhere program and may not contain all information available regarding this patient. Last updated 17.[facility] Allergies No known active allergies Medications * Be aware that medications may not be up to date on this document. Alwaysverify current medications with the patient. Lykbiqgp-Qwb-Uf -FA ( VITAMIN WITH IRON) tabletIndicatio ns: [...] Comments Blood Pressure 126/74 04/20/2018 11:09 AM BUSINESS PRACTICES OFFICER Pulse 71 04/20/2018 11:09 AM BUSINESS PRACTICES OFFICER Temperature - - Respiratory Rate - - Oxygen Saturation - - Inhaled Oxygen Concentration - - Weight 84.8 kg (187 lb) 04/20/2018 11:09 AM BUSINESS PRACTICES OFFICER Height 160 cm (5' 3) 04/20/2018 11:09 AM BUSINESS PRACTICES OFFICER Body Mass Index 33.13 04/20/2018 11:09 AM BUSINESS PRACTICES OFFICER Plan of Treatment Health Maintenance Due Date Last Done Comments HIV SCREENING 2004 HEPATITIS C SCREENING 03/20/2007 DTAP/TDAP/TD VACCINES (1 - Tdap) 2008 HEPATITIS B VACCINE (1 of 3 - 19+ 3-dose series) 2008 HPV VACCINE (1 - 3-dose SCDM series) 2016 DEPRESSION SCREENING 02/16/2024 COVID-19 VACCINE (1 - 2023-2 5 season) 2024 INFLUENZA VACCINE (#1) 2024 ZOSTER VACCINE (1 of 2) 2039 [...] this topic Insurance [employer] Care Teams Speech Language Pathologist Prn Relationship Specialty Start Date End Date Jean Ng MD [address] [place] [address] [place] [address] [phone] PCP - General 07/22/20
--- OUTSIDE RECORDS SUMMARY | 2024-11-11 16:55 | XMS_ITS | Clinical Summary ---
Author Organization [facility] [address] [facility] Address [address] d[place] [facility] [address] Care Team Providers Care Mortgage Loan Reviewer Name Role Phone No, Physician Primary Care Provider [phone] Allergies Active Allergy Reactions Criticality Noted Date Comments Other Hives Medium 04/03/2019 Wasp sting Medications norethindrone (MICRONOR) 0.35 mg tablet Take 1 tablet by mouth daily 02/10/2019 Active PNV 39-iron [id number] a 30 mg iron-1.2 mg-55 mg-265 mg [...] on file Legal Sex Female 8:41 AM FINE HAIRER Gender Identity Female 06/02/2023 11:56 AM CDT Sexual Orientation Straight 06/02/2023 11 :56 AM CDT Obstetrics History Last Filed Vital Signs Vital Sign Reading Time Taken Comments Blood Pressure 120/88 06/09/2023 9:02 AM CDT Pulse 59 06/09/2023 9:02 AM CDT Temperature 36.6 C (97.9 F) 06/09/2023 9:02 AM CDT Respiratory Rate 16 04/03/2019 9:00 AM FINE HAIRER Oxygen Saturation 98% 06/09/2023 9:02 AM CDT [...] Screening 2007 Regular Well Visit/Exam 18-64 2007 HPV Vaccines (1 - 3-dose SCD M series) 2016 Depression Screening 06/08/2024 06/09/2023 Influenza Vaccine (#1) 2024 10/24/2018 DTaP/Tdap/Td Vaccine (3 - Td or Tdap) 09/08/2028 09/08/2018, 05/29/2014 Hepatitis C Screening Completed 06/09/2023 , 06/09/2023, 06/01/2023 Pneumococcal vaccine <65 Aged Out No longer eligible based on patient's age to complete this topic Procedures Procedure Name Priority Date/Time Associated Diagnosis Comments HEPATITIS C RNA, QUANTITATIVE, PCR Routine 06/09/2023 9:20 AM CDT HCV antibody positive from Last 3 Months or Most Recently Relevant to Health Maintenance Results * Hepatitis C (HCV) RNA PCR, quantitative Blood (06/09/2023 9:20 AM CDT) [facility] HCV RNA result Not Detected [facility] Comment: The quantifiable range of this assay is 15 IU/mL to 100,000,000 IU/mL (1.18 log IU/mL to 8.00 log IU/mL). Testing was performed by the TANISHA 6800 HCV Test ([employer] Testing performed at [facility] Current Interpretive Data was last revised on 2020 Blood 06/09/2023 9:20 AM CDT 06/09/2023 1:47 PM CDT us Yolie Jacobson NP LAB MICROBIOLOGY - GENERA L ORDERABLES Final Result [facility] Department [place] [address] [facility] from Last 3 Months or Most Recently Relevant to Health Maintenance Insurance [employer] [place] Care Teams Mortgage Loan Reviewer Relationship Specialty Start Date End Date No, Physician PCP - General 04/03/19
[2024-11-11 16:57] VITALS: BP 109/75; PULSE 76; RESP 16; TEMP 36.6; O2SAT 99
--- OUTSIDE RECORDS SUMMARY | 2024-11-11 16:57 | XMS_ITS | Clinical Summary ---
Author Organization [facility] Address [address] [place] [id number] Care Team Providers Care Casino Attendant Name Role Phone Miracle Cruz Primary Care [...] Comments Blood Pressure 128/76 03/13/2022 8:15 PM PRODUCTION TEAM ADVISOR Pulse 88 03/13/2022 8:15 PM PRODUCTION TEAM ADVISOR Temperature 36.5 C (97.7 F) 03/13/2022 8:15 PM PRODUCTION TEAM ADVISOR Respiratory Rate 16 03/13/2022 8:15 PM PRODUCTION TEAM ADVISOR Oxygen Saturation 97% 03/13/2022 8:15 PM PRODUCTION TEAM ADVISOR Inhaled Oxygen Concentration - - Weight 87.1 kg (192 lb) 03/13/2022 3:00 PM PRODUCTION TEAM ADVISOR Height 157.5 cm (5' 2) 03/13/2022 3:00 PM PRODUCTION TEAM ADVISOR Body Mass Index 35.12 03/13/2022 3:00 PM PRODUCTION TEAM ADVISOR Plan of Treatment Health Maintenance Due Date Last Done Comments Cervical Cancer Screening Pa p Smear (Age 30 to 64) Every 3 Years 1989 Annual Physical 1992 Hepatitis C 2007 Hepatitis B Vaccines (1 of 3 - 19+ 3-dose series) 2008 HPV Vaccines (1 - 3-dose SCD M series) 2016 Cervical Cancer Screening Pa p with HPV Testing (Age 30 to 64) Every 5 Years 2019 Cervical Cancer Screening wi th HPV 2019 COVID-19 Vaccine (1 - 2023-2 5 season) 2024 DTaP, Tdap and Td Vaccines ( 3 - Td or Tdap) 09/08/2028 09/08/2018, 05/29/2014 Meningococcal B Vaccine Aged Out No l [...] patient's age to complete this topic Insurance [facility] Care Teams Casino Attendant Relationship Specialty Start Date End Date Miracle Cruz FNP [address] [place] [id number] PCP - General Nurse Practitioner Family 03/13/22
--- NOTE | 2024-11-11 17:07 | ED_ITS ---
HPI - Extremity Problem General Chief complaint: Extremity Problem,Nontraumatic Stated complaint: left hand infected finger Time Seen by Provider: 11/11/24 17:07 Source: patient Mode of arrival: ambulatory Limitations: no limitations History of Present Illness HPI Narrative: 34-year-old female presented for complaint of an infection around the left 4th fingernail. First noticed yesterday and has become more swollen and painful. Denies any active drainage. She soaked the finger yesterday in warm water. Related Data Allergies Allergy/AdvReac Type Severity Reaction Status Date / Time venom-wasp Allergy Severe Swelling Verified 11/11/24 17:08 hydrocodone AdvReac Mild Nausea Verified 11/11/24 17:08 Review of Systems Review of Systems: CONSTITUTIONAL: Denies body aches, fever, chills, or sweats. EYES: Denies visual changes, redness, or discharge. ENT: Denies rhinorrhea, congestion CARDIOVASCULAR: Denies chest pain, palpitations, or edema. RESPIRATORY: Denies cough or dyspnea. GASTROINTESTINAL: Denies abdominal pain, nausea, vomiting, or diarrhea. SKIN: Left 4th digit infection MUSCULOSKELETAL: Denies back pain, joint pain, or myalgia. NEUROLOGIC: Denies headache, numbness, tingling, or weakness. [facility] Past Medical History Medical History History of DVT of lower extremity after knee surgery Hypothyroidism Overweight DVT (deep venous thrombosis) Surgical History Surgical History S/P H/O dilation and curettage S/P ACL repair Family History Family History Grandparent Breast cancer Social History Social History Social History: 08/15/24 Very confident with medical forms Smoking status: Never smoker Substance use: never Substance use type: does not use Do You Feel Safe in your Home?: Yes Lack of Transportation: No Lack of Food: Never True Current Housing: I Have Housing Concerned About Future Housing: No Difficulty Paying Gas/Electric Bills: No Difficulty Paying for Meds: No Currently Unemployed: No Education: Bachelor's Degree Difficulty w/ Childcare or Family Care: No Living arrangements: with family Spiritual care concerns: No Comments At time of signature, I have reviewed and agree with nursing past medical, surgical, social and family history unless otherwise noted. Please see nursing chart for further information. There is no relevant family history pertinent to the presenting complaint Exam Narrative: GENERAL: Well-appearing EYES: conjunctivae clear, and EOMI. ENT: Mucous membranes moist. NECK: Supple. No lymphadenopathy CHEST: Clear to auscultation. HEART: Regular rate and rhythm. SKIN: Left 4th digit paronychia, no active drainage, fluctuant. CMS intact. NEURO: Alert and oriented x3. Course Course Emergency Course: Patient is aware of diagnosis, understands and agrees to treatment plan. Anticipatory guidance given. Patient agrees to follow-up as directed and is aware of reasons to seek care at the emergency department. Portions of this record may have been created with voice recognition software Level of Care: Express Care Visit Vital Signs Vital signs: Vital Signs Temperature 97.9 F 11/11/24 16:57 Pulse Rate 76 11/11/24 16:57 Respiratory Rate 16 11/11/24 16:57 Blood Pressure 109/75 11/11/24 16:57 Pulse Oximetry 99 11/11/24 16:57 Oxygen Delivery Room Air 11/11/24 16:57 Temperature 97.9 F 11/11/24 16:57 Pulse Rate 76 11/11/24 16:57 Respiratory Rate 16 11/11/24 16:57 Blood Pressure 109/75 11/11/24 16:57 Pulse Oximetry 99 11/11/24 16:57 Oxygen Delivery Room Air 11/11/24 16:57 Reviewed Procedures Abscess I/D left 4th digit: Date of Incision: 11/11/24 I&D Results: Pus Abcess I&D Additional Comments: The procedure and its alternatives were reviewed with patient. Risks were reviewed with patient including infection and damage to nearby structures. Patient provided verbal informed consent. The patient was positioned appropriately. Single straight puncture made to center of most fluctuant area. Moderate amount of thick purulent discharge expelled with manual pressure. Pt tolerated the procedure well, no complications. Dressing applied MDM - Extremity (Nontraumatic) MDM Narrative Medical decision making narrative: Discussed physical exam findings consistent with paronychia. Patient tolerated I and D. Advised supportive measures and signs/symptoms to go to the ER. Pt is appropriate for outpt treatment and f/u. Differential Diagnosis Differential diagnosis: Likely cellulitis and other (paronychia, ingrown nail) Discharge Plan Discharge Clinical Impression: Paronychia Patient Disposition: Home Condition: Stable Instructions: Antibiotic Form, Paronychia (ED) Additional Instructions: Soak your finger in warm soapy water 4 times each day. This can help with any additional drainage that needs to come out. elevate the hand to help decrease swelling and pain. Avoid trimming cuticles or biting nails Tylenol or ibuprofen as needed for pain Take antibiotic as directed - it may cause diarrhea in the , while . Please follow-up with your primary care doctor in the next 3 days. If you cannot follow-up with your primary care doctor please go to the ED for any urgent issues. Patient Language: Uruguayan Prescriptions: New cephalexin 500 mg capsule 500 mg PO Q8H 5 Days Qty: 15 0RF Follow-up/Referrals: PHYSICIAN,SOFTWARE SECURITY ARCHITECT [Primary Care Provider, Internal Medicine] Time of Disposition: 17:23
== END 2024-11-11 17:25 | disposition home or self-care (01) ==
PROVIDERS: Emergency Provider Nurse Practitioner Family
DX: L03.012 Cellulitis of left finger (principal); E03.9 Hypothyroidism, unspecified; Z86.718 Personal history of other venous thrombosis and embolism
CPT/HCPCS: 10060; 99213; G0463

== ENCOUNTER 2025-02-06 14:20 | Outpatient (CLI) | payer BC, SELFPAY ==
--- NOTE | ~2025-02-06 | MR_ITS ---
EXAMINATION: MR knee RT wo con DATE: 02/06/2025 15:00 INDICATION: Right knee pain TECHNIQUE: Magnetic resonance imaging (MRI) of the right knee was performed without intravenous contrast. Sequences included coronal PD-weighted FSE, coronal PD-weighted FS FSE, sagittal T2-weighted FSE, sagittal PD-weighted FS FSE and axial PD weighted fat saturated FSE. COMPARISON: None. FINDINGS: Medial compartment: Complex medial meniscal tear which includes an oblique tear plane extending between the superior and inferior articular surface at the junction of the body and posterior horn. There is a second likely parrot beak configuration tear plane beginning at the free edge of the central aspect of the posterior horn progressing further peripherally and laterally. There is displacement of a meniscal flap anterior to the tear plane which extends posteriorly and superiorly from near the region of the posterior root and with truncation of the inner margin of the remaining nondisplaced posterior horn. Articular cartilage appears normal. Lateral compartment: Lateral meniscus is normal. Suggestion of a subtle partial-thickness chondral fissure without degenerative subchondral changes underlying the posterior horn of the lateral meniscus along the posterior margin of the lateral tibial plateau. Mild partial thickness chondral ulceration along the posterior margin of the weightbearing lateral femoral condyle. Patellofemoral compartment: Partial-thickness chondral fissuring without degenerative subchondral changes extending horizontally across the central aspect of the lateral patellar facet. Shallow chondral fissuring, also without degenerative subchondral changes along the caudal most aspect of the trochlear groove. Ligaments and tendons: Posterior cruciate ligament is normal. Postoperative change of prior anterior cruciate ligament reconstruction with linear increased signal extending along the fibers of the intra-articular portion of the graft which appears thickened and with mild posterior bowing of the axis of the graft fibers which suggests recurrent at least partial tear if not complete graft failure. Ganglion cysts extend from proximal to distal along the tibial tunnel protruding slightly from the inferior exit of the tunnel along the anteromedial margin of the proximal tibial metaphyseal region. There is magnetic artifact associated with a likely metallic button at the exit of the femoral tunnel at the lateral femoral epicon dyle. The medial collateral ligament and fibular collateral ligament complex are normal. The extensor mechanism is normal. The visualized medial and lateral hamstring tendons as well as the iliotibial band are normal. Fluid: Minimal right knee joint effusion at the suprapatellar pouch. No loose osteochondral bodies identified. Osseous/other: Normal marrow signal. No fracture or pathologic marrow replacing process. IMPRESSION: 1. Postoperative change of prior anterior cruciate ligament reconstruction with findings suggestive of likely recurrent partial tear is not complete failure of the graft, the intra-articular portion of which appears thickened with laxity to the graft fibers and intervening increase signal. 2. Complex tear of the posterior horn of the medial meniscus with displacement of a flap arising from the lateral inner margin of the posterior horn. 3. 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 Reviewed, dictated and finalized at location A. E GATE MORTISER OPERATOR IMPRESSION: 1. Postoperative change of prior anterior cruciate ligament reconstruction with findings suggestive of likely recurrent partial tear is not complete failure o f the graft, the intra-articular portion of which appears thickened with laxity to the graft fibers and intervening increase signal. 2. Complex tear of the posterior horn of the medial meniscus with displacement of a flap arising from the lateral inner margin of the posterior horn. 3. Mild tricompartmental osteoarthritis with small regions of moderate grade ch ondromalacia in all 3 compartments.
== END 2025-02-06 14:21 | disposition home or self-care (01) ==
LOC: GOSHIMG 14:20
PROVIDERS: PCP Nurse Practitioner Family; Visit Provider Nurse Practitioner Family
DX: T84.410A Breakdown (mechanical) of muscle and tendon graft, initial encounter (principal); M23.51 Chronic instability of knee, right knee; S83.231A Complex tear of medial meniscus, current injury, right knee, initial encounter; X58.XXXA Exposure to other specified factors, initial encounter; M17.11 Unilateral primary osteoarthritis, right knee; M94.261 Chondromalacia, right knee; Z98.890 Other specified postprocedural states
CPT/HCPCS: 73721

== ENCOUNTER 2025-02-07 09:30 | Outpatient (RCR) | payer BC, SELFPAY ==
--- NOTE | 2025-01-17 10:59 | PTOPEVAL1 ---
Assessment and note entered by Deepthi Koenig, PT Evaluation Information Assessment Status Evaluation Diagnosis Pain in right knee ICD-10 Condition Codes (PT) Pain in right knee M25.561,Weakness R53.1 Other ICD-10 Condition Codes ( Instability right knee PT) Subjective Information History of injury to both knees, left ACL and fixed 4 years, right ACL fixed four years later, also had right meniscus and had that fixed. Reports feels she is compensating because hip and calf discomfort. Pain in front of knee, injured Dec 31 walking down a slight hill, and knee started hurting. no twisting, no fall. First week was painful in all positions. Saw PCP and had MRI ordered scheduled for Feb 06 . Was provided referral for Alex but hasn't picked it up. Ices before bed, and in the morning feels good, then walking increases pain. Over the counter braces don't help, tried ordering one online and it didn't fit. Sits for work, when gets up will feel a pop and feels better Reported Pain Level Pain Score 2: Self Report Assessment PT Clinical Summary Pt presents with increased knee pain after walking down an incline, no traumatic incident though had increased pain that continued increasing after that. History of multiple knee injuries including prior ACL and meniscus repair on that knee. Demonstrates decreased extension compared to left knee though able to achieve 0 degrees. Increased ligament laxity right knee and (+) Christie's test suggestive of ACL Tear. Pt already scheduled for an MRI of her knee. Today we discussed plan of care up to and beyond MRI imaging to improve strength and stability, reduce pain, and allow pt to meet functional mobility needs without discomfort. Plan of Care Interventions Electrical Stimulation,Hot Pack/Cold Pack,Manual Therapy,Neuro Re-education,Patient/Caregiver Education,Therapeutic Activities,Therapeutic Exercise,Self-Care/Home Management,Ultrasound, Other Other Interventions Taping, Bracing PT Services Indicated Yes Treatment Frequency and 2x weekly x 12 visits Duration These treatments will address the objective and functional deficits as defined above. The patient will be advanced safely and appropriately in order for the patient to progress towards his/her prior level of function. Additional exercises will be introduced and as well as a comprehensive home exercise program upon discharge, if needed, ?to ensure carryover of functional gains achieved in the clinic. This treatment plan has been reviewed and agreement upon by the patient.
--- NOTE | 2025-01-17 10:59 | OPREHPOC ---
Outpatient Therapy Plan of Care This is a Multidisciplinary Plan of Care that may contain components documented by all disciplines (PT, OT, and ST.) PT Problem 1 PT Problem #1 Knowledge Deficit PT Goal 1 Goal / Goal Update Pt will be independent in HEP Pt will verbalize understanding of diagnosis and prognosis Target Visit 6 PT Problem 2 PT Problem #2 Pain PT Goal 1 Goal / Goal Update Pt will report lowest pain rating at 0/10 to show improvement in overall discomfort Target Visit 6 PT Goal 2 Goal / Goal Update Pt will report greatest pain level at 3/10 or less to improve ADLs and activities Target Visit 12 PT Problem 3 PT Problem #3 Impaired Strength PT Goal 1 Goal / Goal Update Pt will demonstrate 4+/5 gluteus savanna and medius strength RLE to support knee function Target Visit 6 PT Goal 2 Goal / Goal Update Pt will show 5/5 quads and hamstring strength for increased knee stability Target Visit 12
--- NOTE | 2025-02-14 10:25 | PCPTNOTE ---
Patient called & cancelled scheduled appointment this date due to illness.
--- NOTE | 2025-02-14 12:48 | PTOPDC ---
Assessment and note entered by Deepthi Koenig, PT Evaluation Information Assessment Status Discharge - Pt Not Present Diagnosis Pain in right knee ICD-10 Condition Codes (PT) Pain in right knee M25.561,Weakness R53.1 Other ICD-10 Condition Codes ( Instability right knee PT) Subjective Information History of injury to both knees, left ACL and fixed 4 years, right ACL fixed four years later, also had right meniscus and had that fixed. Reports feels she is compensating because hip and calf discomfort. Pain in front of knee, injured Dec 31 walking down a slight hill, and knee started hurting. no twisting, no fall. First week was painful in all positions. Saw PCP and had MRI ordered scheduled for Feb 06 . Was provided referral for Alex but hasn't picked it up. Ices before bed, and in the morning feels good, then walking increases pain. Over the counter braces don't help, tried ordering one online and it didn't fit. Sits for work, when gets up will feel a pop and feels better Assessment PT Clinical Summary Pt has attended therapy consistently for her knee pain. Speaking with her today, she reports she doesn't feel the knee has improved with therapy. She recently received an MRI as well showing complex tearing in the meniscus, possible partial tear and laxity in the post-op ACL. Pt has made an appt to consult with her ortho for surgical options, and thus would like to cease therapy at this time. Plan of Care PT Services Indicated No
== END 2025-02-14 12:51 | disposition home or self-care (01) ==
LOC: ANHHIPT 09:30
PROVIDERS: PCP Nurse Practitioner Family; Visit Provider Nurse Practitioner Family
DX: M25.561 Pain in right knee (principal); R53.1 Weakness
CPT/HCPCS: 97014; 97035; 97110; 97161; 97530; G0283